=== PATIENT | male | born 1935 | race Asian ===

== ENCOUNTER 2020-10-28 20:22 | Emergency (ER) | payer OTHER, MEDICAID, SELFPAY ==
[~2020-10-28] VITALS: Ht 167.6 cm; Wt 54.4 kg
[2020-10-28 21:15] VITALS: BP_SYST 175
[2020-10-28 23:56] VITALS: BP_SYST 175
--- NOTE | 2020-10-28 23:56 | NUR ---
Patient given written and verbal discharge instructions and verbalizes understanding. ER MD discussed with patient the results and treatment provided. Patient in stable condition. ID arm band removed. Patient educated on pain management and to follow up with PMD. Opportunity for questions provided and answered. Medication side effect fact sheet provided.
== END 2020-10-28 23:56 | disposition home or self-care (01) ==
LOC: SED 20:22
DX: U07.1 COVID-19 (principal)
CPT/HCPCS: 36415; 71045; 99284

== ENCOUNTER 2020-11-11 11:05 | Inpatient (IN) | payer OTHER, MEDICAID, SELFPAY ==
[~2020-11-11] VITALS: Ht 160 cm; Wt 49.9 kg
[2020-11-11 11:05] VITALS: BP_SYST 125
--- NOTE | 2020-11-11 11:11 | NUR ---
Pt triaged in back of ambulance, increased work of breathing, sats in the 70's on CPAP. Brought into ER bed 7. Dr. Mccurdy and RT called to bedside. Pt consents to intubation, FULL CODE.
--- NOTE | 2020-11-11 11:11 | NUR ---
Patient to ER bed 07 to gown for evaluation. Side rails up.
[2020-11-11] MEDS ORDERED: methylPREDNISolone SOD SUCC/PF 62.5 MG/ML VIAL ONE (11:22)
[2020-11-11] MEDS ORDERED: ALBUTEROL SULFATE 0.083% 2.5 MG/3 ML VIAL.NEB INH ONE (11:23)
--- NOTE | 2020-11-11 11:30 | NUR ---
Patient not known to be of DNR status. Patient medicated with 10 mg of etomidate and 10mg of rocuronium for sedation prior to placement of ET tube. Respiratory therapy at bedside prior to placement. Size 7.5 ET tube placed by Dr Mccurdy. Cuff inflated with air. Auscultation of breath sounds over bilateral chest wall. ET tube secured with securement device. O2 sats 95% pulse ox. # 16 FR NG tube placed OG by Dr Mccurdy. Placement checked by auscultation of instilled air into stomach and aspiration of gastric contents. Tubing taped in place to prevent dislodging. Patient tolerated well. PCXR ordered to check tube and OG tube placement. Addendum: 11/11/20 at 1157 by SDEDSTC ETT 22cm @ lip
[2020-11-11] MEDS ORDERED: PROPOFOL DRIP 100 ML IV ONE ×3 (11:35→21:17)
[2020-11-11] MEDS ORDERED: methylPREDNISolone SOD SUCC/PF 62.5 MG/ML VIAL IVP ONE (12:00)
[2020-11-11] MEDS ORDERED: ETOMIDATE 20 MG/ 10 ML VIAL (AMIDATE) IVP ONE (12:00)
[2020-11-11] MEDS ORDERED: ROCURONIUM BROMIDE 10 MG/ML (ZEMURON) IV ONE (12:00)
[2020-11-11] MEDS ORDERED: IPRATROPIUM BROM 0.5 MG/2.5 ML VIAL.NEB (ATROVENT) INH ONE (12:00)
[2020-11-11] MEDS ORDERED: MAGNESIUM SULFATE 1 GM in NS 50 ML IV ONE (12:00)
[2020-11-11] MEDS ORDERED: LevALBUTEROL HCL 1.25 MG/0.5 ML *CONC.* VIAL.NEB (XOPENEX CONC.) INH ONE (12:00)
--- NOTE | 2020-11-11 12:00 | NUR ---
Pt attempting to pull out ETT. Pt is restless and moving in [place].
[2020-11-11] MEDS ORDERED: MONT10TA27 PO (12:06)
[2020-11-11] MEDS ORDERED: NOR10 PO (12:06)
[2020-11-11] MEDS ORDERED: [UNRECOGNIZED DRUG - CODE] PO (12:06)
[2020-11-11] MEDS ORDERED: CELE200C PO (12:06)
[2020-11-11] MEDS ORDERED: ALBMDI INH (12:06)
[2020-11-11] MEDS ORDERED: ESOM20CA33 PO (12:06)
[2020-11-11] MEDS ORDERED: ROSU10TA2 PO (12:06)
[2020-11-11] MEDS ORDERED: TAMS0.4C96 PO (12:06)
[2020-11-11] MEDS ORDERED: FINA5TAB3 PO (12:06)
[2020-11-11] MEDS ORDERED: SPIRIVA INH (12:06)
[2020-11-11] MEDS ORDERED: LORazepam 2 MG/ML VIAL ONE (12:13)
[2020-11-11] MEDS ORDERED: MAGNESIUM SULFATE/D5W 100 ML IV ONE (12:15)
[2020-11-11] MEDS ORDERED: LORazepam 2 MG/ML VIAL IVP ONE (12:15)
[2020-11-11 12:27] LABS: BASOPHILS # (AUTO) 0.1 K/uL (0.0-0.2); BASOPHILS % (AUTO) 0.5 % (0.0-2.0); EOSINOPHILS # (AUTO) 0.1 K/uL (0.0-0.4); EOSINOPHILS % (AUTO) 0.5 % (0.0-4.0); HEMATOCRIT 37.7 % (36-54); HEMOGLOBIN 12.5 g/dL (14.0-18.0); LYMPHOCYTES # (AUTO) 0.6 K/uL (1.0-5.5); LYMPHOCYTES % (AUTO) 3.2 % (20.5-51.5); MEAN CORPUSCULAR HEMOGLOBIN 30 pg (27-31); MEAN CORPUSCULAR HGB CONC 33 % (32-36); MEAN CORPUSCULAR VOLUME 89 fL (79.0-98.0); MONOCYTES # (AUTO) 1.3 K/uL (0.0-1.0); MONOCYTES % (AUTO) 7.8 % (1.7-9.3); NEUTROPHILS # (AUTO) 15.1 K/uL (1.8-7.7); PLATELET COUNT (AUTO) 271 K/uL (130-430); RED BLOOD CELL COUNT(AUTO) 4.24 MIL/uL (4.2-6.2); RED CELL DISTRIBUTION WIDTH 14.4 % (9.0-15.0); WHITE BLOOD COUNT (AUTO) 17.1 K/uL (4.8-10.8)
[2020-11-11 12:44] LABS: ALANINE AMINOTRANSFERASE 54 U/L (12-78); ALBUMIN 2.4 g/dL (3.4-4.8); ANION GAP 11 (5-15); ASPARTATE AMINOTRANSFERASE 61 U/L (10-37); CHLORIDE 99 mmol/L (98-107); CREATININE 1.49 mg/dL (0.55-1.30); POTASSIUM 4.3 mmol/L (3.5-5.1); SODIUM SERUM 133 mmol/L (136-145); UREA NITROGEN, BLOOD 38 mg/dL (8-21)
--- NOTE | 2020-11-11 12:45 | NUR ---
Ativan given as ordered. Diprovan increased to 20mcg/kg/min.
[2020-11-11 12:46] LABS: GLUCOSE 424 mg/dL (70-99); TOTAL BILIRUBIN 19.5 mg/dL (0.0-1.0)
[2020-11-11 12:59] LABS: PROTHROMBIN TIME 10.4 SECS (9.5-12.5)
[2020-11-11] MEDS ORDERED: INSULIN REGULAR, HUMAN 10 UNITS/0.1 ML INJ IVP ONE (13:00)
[2020-11-11] MEDS ORDERED: INSULIN REGULAR, HUMAN 10 UNITS/0.1 ML INJ ONE (13:02)
--- NOTE | 2020-11-11 13:23 | NUR ---
pt in [facility] with side rails up. Pt sedated with medication as ordered. IV Magnesium also infusing as ordered.
--- NOTE | 2020-11-11 13:50 | NUR ---
RT NOTE: 1350 Moved ETT down 3cm per Dr Mccurdy. ETT 25cm at LL. UV Manuel made aware.
[2020-11-11] MEDS ORDERED: AZITHROMYCIN 500 MG in NS 250 ML IV ONE ×2 (14:00→14:30)
[2020-11-11] MEDS ORDERED: NACL 0.9% 1,000 ML IV ONE (14:00)
[2020-11-11] MEDS: DECADRON 4 MG TABLET PO SCH (14:30)
[2020-11-11 14:42] VITALS: BP_SYST 118
[2020-11-11] MEDS ORDERED: ENOXAPARIN SODIUM 60 MG/0.6 ML SYRINGE SUBCUT ONE (14:45)
[2020-11-11] MEDS: D5NS 1,000 ML IV SCH (14:51)
[2020-11-11] MEDS ORDERED: AZITHROMYCIN 500 MG/VIAL (ZITHROMAX) IV ONE (14:59)
--- NOTE | 2020-11-11 15:00 | NUR ---
Provider called regarding pt not being able to take PO medications. Dr. Fowler said he will change the orders.
[2020-11-11 15:20] VITALS: BP_SYST 87
--- NOTE | 2020-11-11 15:20 | NUR ---
CONSULT CALLED PAGED DR SONG VIA PAGER [phone] PAGED DR BARRETO [phone]
--- NOTE | 2020-11-11 16:06 | NUR ---
In bed continues sedation. On Ventilator.
--- NOTE | 2020-11-11 16:40 | NUR ---
Pt running EliseoTensorCommlupillo at 20mcg. Current BP is 93/56 (70).
--- NOTE | 2020-11-11 17:30 | NUR ---
In gurney and sedated. Turned and repositioned. IVF continued.
--- NOTE | 2020-11-11 18:37 | NUR ---
no insulin given for BS of 107. Pt cont. Vent, IVF, Sedation. NGT inplace.
[2020-11-11 19:30] VITALS: BP_SYST 130
--- NOTE | 2020-11-11 19:40 | NUR ---
REPORT RECIEVED FROM COORDINATOR HOTELSVU TANG CONTINUATION OF CARE
--- NOTE | 2020-11-11 20:30 | NUR ---
PT RESTING QUIETLY IN BED VITAL SIGNS STABLE WILL CONTINUE TO MONITOR
[2020-11-11] MEDS: INSULIN GLARGINE 100 UNITS/ML 10 ML VIAL SUBCUT SCH (21:00)
--- NOTE | 2020-11-11 21:03 | NUR ---
PT BLOOD GLUCOSE 109 INSULIN HELD WILL RECHECK AND MONITOR
--- NOTE | 2020-11-11 21:30 | NUR ---
PT REPOSITIONED IN BED TOLERATED WELL VITAL SIGNS STABLE WILL CONTINUE TO MONITOR
--- NOTE | 2020-11-11 23:00 | NUR ---
PT UMNOZ CATH EMPTIED OF 400ML OF TEA COLORED URINE
--- NOTE | 2020-11-11 23:55 | NUR ---
PT BECOMGIN MORE AWAKE FOLLOWING TITRATE PROTOCOL PROPOFOL INCREASED FROM 20 MCG/KG/MIN TO 25 MCG/KG/MIN BP 91/55 HR 72 WILL CONTINUE TO MONITOR
--- NOTE | 2020-11-12 00:05 | NUR ---
MD [place] CALLED FOR ORDERS FOR LEVO DRIP TO CONTROL PT BP WHEN TITRATING PROPOFOL
[2020-11-12] MEDS ORDERED: NOREPINEPHRINE BITARTRATE 4 MG in NS 246 ML IV PRN (00:30)
[2020-11-12] MEDS ORDERED: NOREPINEPHRINE 4 MG/4 ML VIAL IV ONE (00:37)
--- NOTE | 2020-11-12 01:15 | NUR ---
PT PLACED ON LEVO DRIP ORDERED FOR BP BY MD RODRIGUEZ STARTED AT 0.49 MCG/KG/MIN VITAL SIGNS STABLE WILL CONTINUE TO MONITOR
--- NOTE | 2020-11-12 01:26 | NUR ---
PT BP 162/94 LEVOPHED TITRATED TO 0.3 MCG/KG/MIN
--- NOTE | 2020-11-12 02:36 | NUR ---
PT BP 149/108 HR 80 PT ON 25 mcg/KG/MIN OF PROPOFOL AND 0.2 mcg/KG/MIN OF LEVO WILL TITRATE LEVO DOWN TO 0.1 mcg/KG/MIN AND MONITOR PT BP
--- NOTE | 2020-11-12 02:48 | NUR ---
PT DRIP TITRATED TO 0.2 mcg/KG/MIN ON LEVO AND 30 mcg/KG/MIN TO SUSTAIN SEDATION AND BRING BP UP CURRENT BP IS 113/64 HR OF 94
--- NOTE | 2020-11-12 04:45 | NUR ---
LEFT FOREARM 20G IV DISCONTINUED DUE TO INFILTRATION, 20G IV STARTED ON LATERAL FOREARM PATENT AND INFUSING LEVOPHED DRIP AT 0.2mcg/kg/min VITAL SIGNS STABLE WILL CONTINUE TO MONITOR
[2020-11-12] MEDS: INSULIN LISPRO SLIDING SCALE 100 UNITS/ML VIAL (humaLOG) SUBCUT PRN ×2 (06:43→12:26)
[2020-11-12 06:48] LABS: BASOPHILS % (AUTO) 0.2 % (0.0-2.0); HEMATOCRIT 38.3 % (36-54); HEMOGLOBIN 12.8 g/dL (14.0-18.0); LYMPHOCYTES # (AUTO) 0.6 K/uL (1.0-5.5); LYMPHOCYTES % (AUTO) 3.7 % (20.5-51.5); MEAN CORPUSCULAR HEMOGLOBIN 30 pg (27-31); MEAN CORPUSCULAR HGB CONC 34 % (32-36); MEAN CORPUSCULAR VOLUME 89 fL (79.0-98.0); MONOCYTES # (AUTO) 0.5 K/uL (0.0-1.0); MONOCYTES % (AUTO) 3.4 % (1.7-9.3); NEUTROPHILS # (AUTO) 14.3 K/uL (1.8-7.7); NEUTROPHILS % (AUTO) 92.7 % (40.0-70.0); PLATELET COUNT (AUTO) 264 K/uL (130-430); RED BLOOD CELL COUNT(AUTO) 4.28 MIL/uL (4.2-6.2); RED CELL DISTRIBUTION WIDTH 14.2 % (9.0-15.0); WHITE BLOOD COUNT (AUTO) 15.4 K/uL (4.8-10.8)
--- NOTE | 2020-11-12 06:52 | NUR ---
MUNOZ CATH EMPTIED OF 900ML CLEAR YELLOW URINE
--- NOTE | 2020-11-12 06:59 | NUR ---
PT TOLERATING DRIPS WELL VITAL SIGNS STABLE PROPOFOL DRIP 25 mcg/kg/min LEVOPHED 0.2 mcg/kg/min BP 129/66 HR 96 Addendum: 11/12/20 at 0702 by [email or web address] PT TOLERATING DRIPS WELL VITAL SIGNS STABLE PROPOFOL DRIP 30 mcg/kg/min LEVOPHED 0.2 mcg/kg/min BP 129/66 HR 96
--- NOTE | 2020-11-12 07:20 | NUR ---
REPORT FROM MOHINDER WOMACK
--- NOTE | 2020-11-12 07:22 | NUR ---
BEDSIDE REPORT GIVEN TO PHARMACY TECHNOLOGIST SUN WHO WILL ASSUME CARE
[2020-11-12 07:38] VITALS: BP_SYST 116
--- NOTE | 2020-11-12 07:40 | NUR ---
RT NOTE: 0740 Decreased FiO2 to 60%. VU Dutton made aware. 0920 Decreased FiO2 to 50% by Dr Ortiz. Dr Ortiz verbally ordered to keep titrating pt. VU Dutton relayed info to me. Will carry out orders. Addendum: 11/12/20 at 0932 by Eveline Perez RT Amended: Links added.
--- NOTE | 2020-11-12 07:50 | NUR ---
Alayna RT at
--- NOTE | 2020-11-12 07:52 | NUR ---
Patient actively moving hands near face attempting to grab tubes. Increased propofol IV infusion to 35 mcg/kg/hr per protocol.
--- NOTE | 2020-11-12 07:57 | NUR ---
Patient actively moving hands near face attempting to grab tubes. Increased propofol IV infusion to 40 mcg/kg/hr per protocol.
--- NOTE | 2020-11-12 08:04 | NUR ---
Patient actively moving hands near face. Increased propofol IV infusion to 40 mcg/kg/hr per protocol.
--- NOTE | 2020-11-12 08:10 | NUR ---
Patient actively moving hands near face. Increased propofol IV infusion to 45 mcg/kg/hr per protocol.
[2020-11-12 08:12] LABS: ANION GAP 13 (5-15); CALCIUM 8.6 mg/dL (8.4-11.0); CHLORIDE 103 mmol/L (98-107); GLUCOSE 223 mg/dL (70-99); POTASSIUM 4.1 mmol/L (3.5-5.1); SODIUM SERUM 136 mmol/L (136-145); UREA NITROGEN, BLOOD 39 mg/dL (8-21)
[2020-11-12 08:55] LABS: CREATININE 1.23 mg/dL (0.55-1.30)
--- NOTE | 2020-11-12 09:05 | NUR ---
at bedside examining patient.
[2020-11-12] MEDS ORDERED: PROPOFOL DRIP 100 ML IV PRN (09:45)
[2020-11-12 10:07] LABS: ERYTHROCYTE SEDIMENTATION RATE 73 MM/HR (0-15)
[2020-11-12 10:42] LABS: C-REACTIVE PROTEIN QUANT 14.6 mg/dL (0-0.5)
[2020-11-12] MEDS: ASCORBIC ACID 500 MG TABLET PO SCH (10:58)
[2020-11-12] MEDS: AZITHROMYCIN 250 MG TABLET PO SCH (10:59)
[2020-11-12] MEDS: CHOLECALCIFEROL (VITAMIN D3) 2,000 UNIT TABLET PO SCH (10:59)
[2020-11-12] MEDS: D5NS 1,000 ML IV SCH (11:00)
[2020-11-12] MEDS: ENOXAPARIN SODIUM 60 MG/0.6 ML SYRINGE SUBCUT SCH (11:01)
--- NOTE | 2020-11-12 11:15 | NUR ---
PT REPOSITIONED FOR COMFORT
[2020-11-12 11:30] VITALS: BP_SYST 122
[2020-11-12] MEDS ORDERED: INSULIN Lispro 100 UNITS/ML VIAL (humaLOG) ONE (12:25)
[2020-11-12] MEDS ORDERED: ETOMIDATE 20 MG/ 10 ML VIAL (AMIDATE) IVP ONE (12:27)
[2020-11-12] MEDS ORDERED: ROCURONIUM BROMIDE 10 MG/ML (ZEMURON) IV ONE (12:27)
--- NOTE | 2020-11-12 13:30 | NUR ---
Report to Brigette WOMACK
--- NOTE | 2020-11-12 13:53 | NUR ---
PT REPOSITIONED FOR COMFORT
--- NOTE | 2020-11-12 13:58 | NUR ---
LAB AT THE BEDSIDE FOR BLOOD DRAW
--- NOTE | 2020-11-12 14:19 | NUR ---
PT GIVEN BOLUS TUBE FEEDING 150ML AND 50ML WATER FLUSH. NO RESISTANCE, TOLERATED WELL
[2020-11-12] MEDS: DECADRON 4 MG TABLET PO SCH (14:27)
[2020-11-12 15:38] VITALS: BP_SYST 118
--- NOTE | 2020-11-12 15:41 | NUR ---
SW FAMILY ON THE PHONE, VERBAL CONSENT RECEIVED FOR CONVALESCENT PLASMA BY DAUGHTER YENNI AND SON KYLIE . ORDER GIVEN TO BLOOD BANK TO FILL.
--- NOTE | 2020-11-12 15:58 | NUR ---
PT REPOSITIONED FOR COMFORT
--- NOTE | 2020-11-12 16:25 | NUR ---
Case mgt: Rec'd call from Hilary Black, pt's daughter, who said she is the first contact at [phone] and her Kody Cho is the 2nd contact at [phone]..Per Hilary, the pt's is very ill with Covid right now also. RN
--- NOTE | 2020-11-12 16:45 | NUR ---
TUBE FEEDING 200ML GIVEN, PT TOLERATED WELL
--- NOTE | 2020-11-12 17:45 | NUR ---
NG TUBE FLUSHED WITH 50ML WATER, NO RESIDUAL NOTED
--- NOTE | 2020-11-12 18:00 | NUR ---
1400ML OF DARK YELLOW CLEAR URINE EMPTIED FROM MUNOZ CATH COLLECTION BAG
--- NOTE | 2020-11-12 18:30 | NUR ---
PT STARTED ON COVID-19 CONVALESCENT PLASMA, TOLERATING WELL 128/69 P 88 R22 T97.9
--- NOTE | 2020-11-12 18:45 | NUR ---
TOLERATING CONVALESCENT PLAMSA WELL. V/S STABLE
--- NOTE | 2020-11-12 19:25 | NUR ---
REPORT GIVEN TO VU GALVEZ FOR CONTINUING CARE
[2020-11-12 19:30] VITALS: BP_SYST 125
--- NOTE | 2020-11-12 19:40 | NUR ---
PT RESTING IN ED BED COMFORTABLY, TOLERATING VENTILATOR AND IV MEDICATIONS WELL. PT IN NO ACUTE DISTRESS AT THIS TIME. IV SITES INFUSING WELL, NO S/S OF INFILTRATION AT THIS TIME.
[2020-11-12] MEDS: INSULIN GLARGINE 100 UNITS/ML 10 ML VIAL SUBCUT SCH (21:00)
--- NOTE | 2020-11-12 22:00 | NUR ---
NO ACUTE CHANGES NOTED. PT RESTING IN ED BED COMFORTABLY, TOLERATING VENTILATOR AND IV MEDICATIONS WELL. PT IN NO ACUTE DISTRESS AT THIS TIME. IV SITES INFUSING WELL, NO S/S OF INFILTRATION AT THIS TIME.
--- NOTE | 2020-11-13 01:15 | NUR ---
PT REPOSITIONED FOR SAFETY. RT BEDSIDE PERFORMING ROUTINE CHECKUP, SUCTIONING, VENTILATOR CHECK AND RESPIRATORY STATUS ASSESMENT. NO ACUTE CHANGES NOTED. PT RESTING IN ED BED COMFORTABLY, TOLERATING VENTILATOR AND IV MEDICATIONS WELL. PT IN NO ACUTE DISTRESS AT THIS TIME. IV SITES INFUSING WELL, NO S/S OF INFILTRATION AT THIS TIME.
[2020-11-13 01:30] VITALS: BP_SYST 125
[2020-11-13] MEDS: CEFEPIME 0.5 GM in D5W 50 ML IV SCH ×3 (02:17→21:00)
--- NOTE | 2020-11-13 02:20 | NUR ---
PT GTUBE FLUSHED WITH 50CC WATER
--- NOTE | 2020-11-13 04:00 | NUR ---
RT BEDSIDE PERFORMING ROUTINE CHECKUP, SUCTIONING, VENTILATOR CHECK AND RESPIRATORY STATUS ASSESMENT. NO ACUTE CHANGES NOTED. PT RESTING IN ED BED COMFORTABLY, TOLERATING VENTILATOR AND IV MEDICATIONS WELL. PT IN NO ACUTE DISTRESS AT THIS TIME. IV SITES INFUSING WELL, NO S/S OF INFILTRATION AT THIS TIME.
[2020-11-13 04:51] LABS: ANION GAP 9 (5-15); CALCIUM 7.5 mg/dL (8.4-11.0); CHLORIDE 108 mmol/L (98-107); GLUCOSE 156 mg/dL (70-99); POTASSIUM 4.1 mmol/L (3.5-5.1); SODIUM SERUM 141 mmol/L (136-145); UREA NITROGEN, BLOOD 38 mg/dL (8-21)
[2020-11-13 05:13] LABS: C-REACTIVE PROTEIN QUANT 6.9 mg/dL (0-0.5)
[2020-11-13 06:22] LABS: HEMATOCRIT 34.3 % (36-54); HEMOGLOBIN 11.5 g/dL (14.0-18.0); MEAN CORPUSCULAR HEMOGLOBIN 30 pg (27-31); MEAN CORPUSCULAR HGB CONC 34 % (32-36); MEAN CORPUSCULAR VOLUME 91 fL (79.0-98.0); PLATELET COUNT (AUTO) 275 K/uL (130-430); RED BLOOD CELL COUNT(AUTO) 3.78 MIL/uL (4.2-6.2); WHITE BLOOD COUNT (AUTO) 16.2 K/uL (4.8-10.8)
--- NOTE | 2020-11-13 07:21 | NUR ---
report given given to brenda lopez. all care endorsed.
[2020-11-13 07:23] LABS: BASOPHILS % (AUTO) 0.2 % (0.0-2.0); NEUTROPHILS % (AUTO) 92.8 % (40.0-70.0)
[2020-11-13 07:24] LABS: LYMPHOCYTES # (AUTO) 0.3 K/uL (1.0-5.5); MONOCYTES # (AUTO) 0.8 K/uL (0.0-1.0); NEUTROPHILS # (AUTO) 15.2 K/uL (1.8-7.7)
--- NOTE | 2020-11-13 07:33 | NUR ---
Pt in bed, side rails up. Continues Sedation as ordered and Blood pressure support with Levophed. Also on Ventilator, tolerating well.
[2020-11-13] MEDS: D5NS 1,000 ML IV SCH (07:36)
[2020-11-13 07:50] VITALS: BP_SYST 138
--- NOTE | 2020-11-13 07:50 | NUR ---
RT NOTE: 0750 Decreased PEEP to 8. SpO2 is between 93-95%. Will continue to titrate pt. VU Manuel made aware of changes. Addendum: 11/13/20 at 0829 by Eveline Perez RT Amended: Links added.
[2020-11-13] MEDS: ASCORBIC ACID 500 MG TABLET PO SCH (10:29)
[2020-11-13] MEDS: CHOLECALCIFEROL (VITAMIN D3) 2,000 UNIT TABLET PO SCH (10:29)
[2020-11-13] MEDS: AZITHROMYCIN 250 MG TABLET PO SCH (10:29)
[2020-11-13] MEDS: ENOXAPARIN SODIUM 60 MG/0.6 ML SYRINGE SUBCUT SCH (10:30)
--- NOTE | 2020-11-13 10:31 | NUR ---
SS notes HONING MACHINE OPERATOR PRODUCTION was called to the lobby to meet with son-in-law who stated patients is recovering from Covid at home and is in no condition to make any decisions in regards to patient's health. Son-in-law,Kody Cho is the 2nd contact at [phone] Hilary Black, pt's daughter, who said she is the first contact at [phone]. Son-in-law gave HONING MACHINE OPERATOR PRODUCTION an informal POA which indicated as such and was given to ER/chemistry specialist. HONING MACHINE OPERATOR PRODUCTION expalined to son-in-law this was considered informal and gave him a formal POA, but assured him she would make Rn aware and give to Rn to place in the file. HONING MACHINE OPERATOR PRODUCTION will remain available as needed.
--- NOTE | 2020-11-13 10:49 | NUR ---
pt in bed. sedated as ordered. Levophed on hold at this time.
--- NOTE | 2020-11-13 11:08 | NUR ---
Pt is responding to tactile stimuli. On diprovan. Pt is on Levophed, which is holding at this time with B/P 117/68 (80)
[2020-11-13 11:45] LABS: ALANINE AMINOTRANSFERASE 56 U/L (12-78); ALBUMIN 2.1 g/dL (3.4-4.8); ANION GAP 10 (5-15); ASPARTATE AMINOTRANSFERASE 33 U/L (10-37); BILIRUBIN,DIRECT 0.3 mg/dL (0.0-0.3); CHLORIDE 109 mmol/L (98-107); CREATININE 1.18 mg/dL (0.55-1.30); GLUCOSE 132 mg/dL (70-99); POTASSIUM 4.2 mmol/L (3.5-5.1); SODIUM SERUM 142 mmol/L (136-145); TOTAL BILIRUBIN 0.5 mg/dL (0.0-1.0); UREA NITROGEN, BLOOD 40 mg/dL (8-21)
[2020-11-13 12:06] LABS: ERYTHROCYTE SEDIMENTATION RATE 38 MM/HR (0-15)
[2020-11-13 12:15] VITALS: BP_SYST 120
--- NOTE | 2020-11-13 12:20 | NUR ---
Peep decreased to 5, saturations on 40% on vent are 96% at this time. Levophed held.
--- NOTE | 2020-11-13 13:36 | NUR ---
diprovan continued at 25mcg/kg/min. Levophed on hold. Vent AC TV 400 peep 5 and fio2 40%
[2020-11-13] MEDS: DECADRON 4 MG TABLET PO SCH (14:31)
--- NOTE | 2020-11-13 14:40 | NUR ---
Dietitian Recommendations *Continue Glucerna 1.2 at 10ml, goal of 50ml/hr, with 100ml Free H20 Q6h *At goal and w/Propofol at 25mcg/kg/min (which provides 198 calories) -Provides: 1638 calories, 72g of protein, and 1366ml of free H20 daily -Meets 133% of upper end of calorie and 96% of lower end of protein estimated nutrition needs. Please see Nutrition Assessment for further details. LT, RD
[2020-11-13] MEDS ORDERED: PROPOFOL DRIP 100 ML IV ONE ×2 (14:55→21:08)
[2020-11-13 15:20] VITALS: BP_SYST 108
--- NOTE | 2020-11-13 16:09 | NUR ---
Pt in bed. Side rails up. Ventilator in use. Continues IVF and Diprovan drip at 20mcg/kg/min. tolerating well.
--- NOTE | 2020-11-13 17:25 | NUR ---
Pt is sedated. Levophed off. Ventilator in use.
--- NOTE | 2020-11-13 18:57 | NUR ---
pt responds to tactile stimuli. NGT in place to low intermittent suction. Ventilator in use. fio2 down to 40% and peep at 5. Vital signs have been stablized. Levophed not in use at this time. Pt continues sedation with diprovan.
[2020-11-13 19:33] VITALS: BP_SYST 117
--- NOTE | 2020-11-13 19:33 | NUR ---
rt notes 1932 titrated fio2 to 35%, pt saturation 95%. no distress noted. will continue to monitor pt.
--- NOTE | 2020-11-13 21:30 | NUR ---
Report recevied from Kaleb WOMACK for continuation of care.
--- NOTE | 2020-11-13 21:45 | NUR ---
Pt currently on ventilation and sedated. Propofol runnning art 35 mcg/hr. Upon assessment carmina brown discharge from OGT. Admitting MD to be paged.
--- NOTE | 2020-11-13 21:50 | NUR ---
Pt.'s daughter, Mandi calls to [employer]. Informed her that iPad is not available at this time and suggested that she call back tomorrow. Contact Information: Mehran: [email or web address]
--- NOTE | 2020-11-13 22:10 | NUR ---
HOLD ANTICOGUALANTS AND TUBE FEEDING PER DR GAYTAN
--- NOTE | 2020-11-13 22:10 | NUR ---
Dr Cotto responding to page for patient. Made aware of 300 cc of coffee brown emesis in suction cup.
--- NOTE | 2020-11-13 22:30 | NUR ---
Upon assessment of mota cath, pt has voided about 800 cc of Addendum: 11/13/20 at 2236 by [email or web address] Upon assessment of mota cath, pt has voided about 800 cc of urine bright red urine in color. Dr Daxa garcia, repeat hemoglobin and hematocrit to be drawn. will called with results if critical.
--- NOTE | 2020-11-13 22:40 | NUR ---
RT caalled to bedside, pt fighting intubation. Propofol increased to 40 mcg.
[2020-11-13 23:21] VITALS: BP_SYST 115
--- NOTE | 2020-11-13 23:21 | NUR ---
rt notes 2321 titrated fio2 to 30%, pt saturation 93%. no distress noted. will continue to monitor pt.
--- NOTE | 2020-11-13 23:40 | NUR ---
electrical tech at bedside for lab drawn
[2020-11-13] MEDS: INSULIN GLARGINE 100 UNITS/ML 10 ML VIAL SUBCUT SCH (23:42)
[2020-11-13 23:51] LABS: HEMATOCRIT 35.3 % (36-54); HEMOGLOBIN 11.8 g/dL (14.0-18.0)
--- NOTE | 2020-11-14 | NUR ---
Pt fighting intubation, dipravan increased to 40 mcg.
--- NOTE | 2020-11-14 02:00 | NUR ---
Norman cath emptied 1500cc of urine.
[2020-11-14] MEDS ORDERED: PROPOFOL DRIP 100 ML IV ONE ×4 (02:16→23:25)
[2020-11-14 03:49] VITALS: BP_SYST 114
--- NOTE | 2020-11-14 03:49 | NUR ---
RT at bedside. Vent settings remain unchanged.
[2020-11-14] MEDS: D5NS 1,000 ML IV SCH (03:54)
--- NOTE | 2020-11-14 05:10 | NUR ---
RT called to bedside, pt O2 at 85 percent. Rt suctioned patient, tolerated well. O2 increased, currently at 92%.
--- NOTE | 2020-11-14 05:20 | NUR ---
Diprvan titrating at 35mcg
[2020-11-14 06:20] LABS: BASOPHILS % (AUTO) 0.4 % (0.0-2.0); HEMATOCRIT 37.5 % (36-54); HEMOGLOBIN 12.6 g/dL (14.0-18.0); LYMPHOCYTES # (AUTO) 0.6 K/uL (1.0-5.5); LYMPHOCYTES % (AUTO) 4.9 % (20.5-51.5); MEAN CORPUSCULAR HEMOGLOBIN 30 pg (27-31); MEAN CORPUSCULAR HGB CONC 34 % (32-36); MEAN CORPUSCULAR VOLUME 89 fL (79.0-98.0); MONOCYTES # (AUTO) 1.1 K/uL (0.0-1.0); MONOCYTES % (AUTO) 9.1 % (1.7-9.3); NEUTROPHILS # (AUTO) 10.1 K/uL (1.8-7.7); NEUTROPHILS % (AUTO) 85.6 % (40.0-70.0); PLATELET COUNT (AUTO) 247 K/uL (130-430); RED BLOOD CELL COUNT(AUTO) 4.24 MIL/uL (4.2-6.2); RED CELL DISTRIBUTION WIDTH 14.3 % (9.0-15.0); WHITE BLOOD COUNT (AUTO) 11.8 K/uL (4.8-10.8)
--- NOTE | 2020-11-14 06:41 | NUR ---
BG 103. No insulin will be given as per protocol.
--- NOTE | 2020-11-14 07:10 | NUR ---
Report given to Brigette WOMACK for continuation of care
--- NOTE | 2020-11-14 07:13 | NUR ---
REPORT RECEIVED FROM VU LEO FOR CONTINUING CARE
[2020-11-14 07:20] VITALS: BP_SYST 126
--- NOTE | 2020-11-14 07:30 | NUR ---
PT CONTINUES ON DRIPS DIPRIVAN @ 40MCG/KG/MIN AND D5NS@ 50ML/HR. PT IS SEDATED AND NO S/SX OF DISTRESS AT THIS TIME
[2020-11-14 07:47] LABS: ANION GAP 7 (5-15); CHLORIDE 109 mmol/L (98-107); CREATININE 1.15 mg/dL (0.55-1.30); GLUCOSE 139 mg/dL (70-99); POTASSIUM 4.1 mmol/L (3.5-5.1); SODIUM SERUM 144 mmol/L (136-145); UREA NITROGEN, BLOOD 47 mg/dL (8-21)
--- NOTE | 2020-11-14 08:38 | NUR ---
LAB AT THE BEDSIDE FOR BLOOD DRAW
[2020-11-14] MEDS: ENOXAPARIN SODIUM 60 MG/0.6 ML SYRINGE SUBCUT SCH (08:50)
[2020-11-14] MEDS ORDERED: PANTOPRAZOLE SODIUM 40 MG/VIAL (PROTONIX) IV ONE (09:30)
[2020-11-14 09:33] LABS: ERYTHROCYTE SEDIMENTATION RATE 65 MM/HR (0-15)
[2020-11-14] MEDS: CEFEPIME 0.5 GM in D5W 50 ML IV SCH ×2 (09:34→21:54)
[2020-11-14 10:20] LABS: C-REACTIVE PROTEIN QUANT 4.2 mg/dL (0-0.5)
[2020-11-14] MEDS: AZITHROMYCIN 250 MG TABLET PO SCH (10:50)
[2020-11-14] MEDS: CHOLECALCIFEROL (VITAMIN D3) 2,000 UNIT TABLET PO SCH (10:50)
[2020-11-14] MEDS: ASCORBIC ACID 500 MG TABLET PO SCH (10:50)
--- NOTE | 2020-11-14 11:07 | NUR ---
PORTABLE X-RAY AT THE BEDSIDE
[2020-11-14 11:20] VITALS: BP_SYST 115
--- NOTE | 2020-11-14 12:35 | NUR ---
PT OBSERVED TO BE FIGTING THE VENT AND SITTING UP AND 02 SAT DROPPED TO 80%. DIPRIVAN INCREASED TO 45MCG/KG/MIN. RT CALLED TO THE BEDSIDE FOR SUCTION, 02 INCREASED TO 100%. PT'S O2 SAT UP TO 100%
--- NOTE | 2020-11-14 12:50 | NUR ---
RT AT THE BEDSIDE, PT IS SEDATED IN NO ACUTE DISTRESS. VENT TITRATED DOWN TO 30%. PT TOLERATED WELL 02 SAT 94%
[2020-11-14] MEDS: METOCLOPRAMIDE HCL 10 MG/2 ML VIAL IVP SCH ×2 (12:51→18:01)
--- NOTE | 2020-11-14 13:40 | NUR ---
PT REPOSITIONED FOR COMFORT
[2020-11-14] MEDS: DECADRON 4 MG TABLET PO SCH (14:52)
[2020-11-14 15:25] VITALS: BP_SYST 125
--- NOTE | 2020-11-14 15:40 | NUR ---
700ML COFFEE GROUND EMESIS REMOVED FROM SUCTION CONTAINER
--- NOTE | 2020-11-14 16:39 | NUR ---
SW TO DAUGHTER WITH STATUS UPDATE
--- NOTE | 2020-11-14 18:08 | NUR ---
800ML OF GREENISH COLORED URINE WITH TINGES OF DARK RED BLOOD REMOVED FROM MUNOZ
--- NOTE | 2020-11-14 19:36 | NUR ---
REPORT GIVEN TO VU LEO FOR CONTINUING CARE
--- NOTE | 2020-11-14 19:40 | NUR ---
Report received from Brigette WOMACK for continuation of care
--- NOTE | 2020-11-14 20:10 | NUR ---
Pt is on diprivan running at 40MCG and D5NS@ 50ML/hr. Pt is sedated no s/s of respiratory distress.
[2020-11-14 20:23] VITALS: BP_SYST 124
--- NOTE | 2020-11-14 20:28 | NUR ---
RT at bedside. Pt suctioned. Tolerated well.
[2020-11-14] MEDS: INSULIN GLARGINE 100 UNITS/ML 10 ML VIAL SUBCUT SCH (22:05)
--- NOTE | 2020-11-14 23:00 | NUR ---
Dipravan drip infusing at 35 mcg. Pt sedated.
[2020-11-14 23:53] VITALS: BP_SYST 117
--- NOTE | 2020-11-14 23:53 | NUR ---
rt notes 2353 increased fio2 to 60%, pt desaturating. sxn'd oral/ett. will continue to monitor pt.will titrate fio2 as tolerated. VU tejada.
[2020-11-15] MEDS: D5NS 1,000 ML IV SCH (00:52)
[2020-11-15] MEDS: METOCLOPRAMIDE HCL 10 MG/2 ML VIAL IVP SCH ×4 (00:52→19:06)
--- NOTE | 2020-11-15 01:17 | NUR ---
Pt restless, Diprovan drip infusing at 40 mcg. Pt suctioned, RT at bedside.
--- NOTE | 2020-11-15 02:00 | NUR ---
Pt fighting ventilation, seems agitated and easily aroused. Diprivan increased to 40 mcg.
--- NOTE | 2020-11-15 02:10 | NUR ---
RT at bedside, pt suctioned, tolerated well. No acute changes.
[2020-11-15 03:47] VITALS: BP_SYST 116
--- NOTE | 2020-11-15 03:47 | NUR ---
Pt FIO2 decreased to 35% by RT Amy.
--- NOTE | 2020-11-15 03:47 | NUR ---
RT NOTES 0347 titrated fio2 to 35%, pt saturation 99%. no distress noted. will continue to monitor pt.
[2020-11-15] MEDS ORDERED: PROPOFOL DRIP 100 ML IV ONE (05:04)
--- NOTE | 2020-11-15 05:30 | NUR ---
Dipravan infusing at 35 mcg. IV sites show no signs of infiltration.
--- NOTE | 2020-11-15 06:34 | NUR ---
Pt voided 740 cc of yellow green tinge urine.
--- NOTE | 2020-11-15 07:09 | NUR ---
BG 85. No insulin coverage needed.
--- NOTE | 2020-11-15 07:23 | NUR ---
report give to diana WOMACK for continuation of care
[2020-11-15 07:30] VITALS: BP_SYST 115
[2020-11-15 07:54] LABS: BASOPHILS % (AUTO) 0.4 % (0.0-2.0); EOSINOPHILS # (AUTO) 0.1 K/uL (0.0-0.4); EOSINOPHILS % (AUTO) 0.6 % (0.0-4.0); HEMATOCRIT 34.5 % (36-54); HEMOGLOBIN 11.5 g/dL (14.0-18.0); LYMPHOCYTES # (AUTO) 0.8 K/uL (1.0-5.5); LYMPHOCYTES % (AUTO) 8.7 % (20.5-51.5); MEAN CORPUSCULAR HEMOGLOBIN 30 pg (27-31); MEAN CORPUSCULAR HGB CONC 34 % (32-36); MEAN CORPUSCULAR VOLUME 89 fL (79.0-98.0); MONOCYTES % (AUTO) 11.6 % (1.7-9.3); NEUTROPHILS # (AUTO) 6.9 K/uL (1.8-7.7); NEUTROPHILS % (AUTO) 78.7 % (40.0-70.0); PLATELET COUNT (AUTO) 180 K/uL (130-430); RED BLOOD CELL COUNT(AUTO) 3.87 MIL/uL (4.2-6.2); RED CELL DISTRIBUTION WIDTH 14.4 % (9.0-15.0); WHITE BLOOD COUNT (AUTO) 8.7 K/uL (4.8-10.8)
--- NOTE | 2020-11-15 08:00 | NUR ---
Patient in [facility], sedated on ventilator.
--- NOTE | 2020-11-15 08:15 | NUR ---
PT repositioned, partial linen change, ET tube suctioned.
[2020-11-15 08:44] LABS: ALANINE AMINOTRANSFERASE 97 U/L (12-78); ALBUMIN 1.6 g/dL (3.4-4.8); ANION GAP 4 (5-15); CHLORIDE 113 mmol/L (98-107); CREATININE 0.96 mg/dL (0.55-1.30); GLUCOSE 81 mg/dL (70-99); POTASSIUM 3.6 mmol/L (3.5-5.1); SODIUM SERUM 143 mmol/L (136-145); TOTAL BILIRUBIN 0.8 mg/dL (0.0-1.0); UREA NITROGEN, BLOOD 32 mg/dL (8-21)
[2020-11-15 08:52] LABS: ERYTHROCYTE SEDIMENTATION RATE 64 MM/HR (0-15)
[2020-11-15] MEDS: CHOLECALCIFEROL (VITAMIN D3) 2,000 UNIT TABLET PO SCH (08:55)
[2020-11-15] MEDS: AZITHROMYCIN 250 MG TABLET PO SCH (08:56)
[2020-11-15] MEDS: ENOXAPARIN SODIUM 60 MG/0.6 ML SYRINGE SUBCUT SCH ×2 (08:57→09:00)
[2020-11-15] MEDS: PANTOPRAZOLE SODIUM 40 MG/VIAL (PROTONIX) IV SCH (09:02)
[2020-11-15] MEDS: ASCORBIC ACID 500 MG TABLET PO SCH (09:09)
[2020-11-15 09:54] LABS: ASPARTATE AMINOTRANSFERASE 98 U/L (10-37)
[2020-11-15] MEDS: CEFEPIME 0.5 GM in D5W 50 ML IV SCH (09:56)
[2020-11-15] MEDS ORDERED: METOCLOPRAMIDE HCL 10 MG/2 ML VIAL ONE (11:32)
[2020-11-15] MEDS: DEXMEDETOMIDINE HCL 400 MCG in NS 96 ML IV PRN ×2 (11:37→12:23)
--- NOTE | 2020-11-15 12:30 | NUR ---
Report to Prachi WOMACK
--- NOTE | 2020-11-15 12:39 | NUR ---
Propofol decreased to 15mcg/kg/ minute, pt on Precedex 0.3 mcg/kg/hour, VSS.
--- NOTE | 2020-11-15 12:39 | NUR ---
Paz arevalo in EDM - 11/15/20 at 1322 by [email or web address] Propofol decreased to 15mcg/kg/ minute, pt on Precedex 0.2mcg/kg/hour, VSS.
--- NOTE | 2020-11-15 13:23 | NUR ---
Precedex increased to 0.4 MCG/KG/ HR, well tolerated
--- NOTE | 2020-11-15 13:35 | NUR ---
Report to Berenice WOMACK(rehab tech)
--- NOTE | 2020-11-15 14:00 | NUR ---
IV PROPOFOL DISCONTINUED. IV PRECEDEX INCREASED TO0.5mcg/kg/H. PT TOLERATING, NO S/S DISTRESS. SAFETY PRECAUTIONS IN PLACE. WILL CONTINUE TO MONITOR. PENDING ICU BED.
[2020-11-15 14:18] VITALS: BP_SYST 105
--- NOTE | 2020-11-15 14:18 | NUR ---
RT NOTE: 1418 Pt is arousable and appears to understand. Explained CPAP to pt. Placed on CPAP 5, PS 10 at this time. Tolerating well. RN made aware. Will draw ABG in 30mins. Addendum: 11/15/20 at 1449 by Eveline Perez RT Amended: Links added.
[2020-11-15 14:55] LABS: CALCIUM 7.8 mg/dL (8.4-11.0)
--- NOTE | 2020-11-15 15:00 | NUR ---
IV PRECEDEX INFUSING AT 0.5mcg/kg/H. PT TOLERATING, NO S/S DISTRESS. SAFETY PRECAUTIONS IN PLACE. WILL CONTINUE TO MONITOR. PENDING ICU BED.
--- NOTE | 2020-11-15 15:21 | NUR ---
SPOKE TO DR. VILLALBA REGARDING PATIENT'S DECADRON PO ORDER. OK TO CHANGE TO IVP. ORDER STOPPED IN CPOE AND NEW ORDER PLACED FOR IVP.
[2020-11-15] MEDS: DEXAMETHASONE SOD PHOSPHATE 10 MG/ML VIAL IVP SCH (15:30)
--- NOTE | 2020-11-15 16:00 | NUR ---
IV PRECEDEX INCREASED TO 0.6mcg/kg/H. PT TOLERATING, NO S/S DISTRESS. SAFETY PRECAUTIONS IN PLACE. WILL CONTINUE TO MONITOR. PENDING ICU BED.
--- NOTE | 2020-11-15 17:00 | NUR ---
IV PRECEDEX INCREASED TO 0.7mcg/kg/H. PT TOLERATING, NO S/S DISTRESS. SAFETY PRECAUTIONS IN PLACE. WILL CONTINUE TO MONITOR. PENDING ICU BED.
--- NOTE | 2020-11-15 17:30 | NUR ---
ACCUCHECK 148. NO INSULIN COVERAGE NEEDED AT THIS TIME.
--- NOTE | 2020-11-15 19:00 | NUR ---
RECEIVED REPORT FROM VU GLOVER . WILL CONTINUE CARE OF PATIENT.
--- NOTE | 2020-11-15 19:32 | NUR ---
Will assume care of patient. Patient presented to the ED on November 11 for altered level of consciousness, respiratory distress, from home. Has history of BPH, hypertension, hyperlipidemia, COPD, asthma. Patient is currently intubated on AC 16 tidal volume of 470 PEEP of 5 on 30% FiO2. Patient has 18-gauge Angiocath to right AC. Currently running Precedex 1.5 mcg/kg/h. And D5 NS at 50 mL's per hour. Patient's RASS score is -2. Vital signs in normal limits. Patient is able to respond to voice. Patient also has an OG tube connected to intermittent suctioning.
--- NOTE | 2020-11-15 20:00 | NUR ---
Oral care performed on patient. Patient tolerated well.
--- NOTE | 2020-11-15 20:30 | NUR ---
Patient resting comfortably in hospital bed. No acute distress noted. will continue to monitor.
[2020-11-15] MEDS: INSULIN GLARGINE 100 UNITS/ML 10 ML VIAL SUBCUT SCH (21:00)
--- NOTE | 2020-11-15 21:09 | NUR ---
Accu-CheCk is 95. Lantus 10 units held at this time. No tube feeding was given to patient during day shift. ADMinister tube feeding
--- NOTE | 2020-11-15 21:30 | NUR ---
18-gauge and 20gauge angiocath removed from right AC. Redness and swelling noted. Pressure dressing applied. 20-gauge Angiocath placed to right forearm.
[2020-11-15 21:54] VITALS: BP_SYST 141
--- NOTE | 2020-11-15 22:00 | NUR ---
Patient restless in bed. Able to nod head when asked questions. Patient is requesting to be sedated. Patient is fighting the ET tube. Dr. Roman called for orders.
--- NOTE | 2020-11-15 22:13 | NUR ---
SPOKE TO DR. ROJO. OK TO START PROPOFOL ON PATIENT. WILL INFORM MD WOULD LIKE PATIENT TO BE WEANED OFF AND PLACED BACK ON PRECEDEX IN THE AM.
[2020-11-15] MEDS ORDERED: PROPOFOL DRIP 100 ML IV PRN (22:30)
--- NOTE | 2020-11-15 22:30 | NUR ---
PATIENT STARTED ON PROPOFOL 5 MCG/KG/MIN AND TITRATED PRECEDEX 1.4 MC/KG/MIN. WILL CONTINUE TO MONITOR PATIENT
--- NOTE | 2020-11-15 22:35 | NUR ---
Paz arevalo in ED - 11/15/20 at 2239 by [email or web address] PATIENT STARTED ON PROPOFOL 10 MCG/KG/MIN AND TITRATED PRECEDEX 1 MC/KG/MIN. WILL CONTINUE TO MONITOR PATIENT
--- NOTE | 2020-11-15 22:35 | NUR ---
Paz arevalo in ED - 11/15/20 at 2248 by [email or web address] TRITATED PROPOFOL 10 MCG/KG/MIN AND TITRATED PRECEDEX 1 MC/KG/MIN. WILL CONTINUE TO MONITOR PATIENT
--- NOTE | 2020-11-15 22:35 | NUR ---
TITRATED PROPOFOL 10 MCG/KG/MIN AND TITRATED PRECEDEX 1 MCG/KG/MIN. WILL CONTINUE TO MONITOR PATIENT
--- NOTE | 2020-11-15 22:40 | NUR ---
TITRATED PRECEDEX 1 MC/KG/MIN. WILL CONTINUE TO MONITOR PATIENT
--- NOTE | 2020-11-15 22:45 | NUR ---
Note mickey in EDM - 11/16/20 at 0136 by [email or web address] Patient restless in bed. Able to nod head when asked questions. Patient is requesting to be sedated. Patient is fighting the ET tube. Dr. Roman called for orders.
[2020-11-15 22:47] VITALS: BP_SYST 132
--- NOTE | 2020-11-15 22:50 | NUR ---
TRITATED PROPOFOL 10 MCG/KG/MIN AND TITRATED PRECEDEX 0.4 MC/KG/MIN. WILL CONTINUE TO MONITOR PATIENT
--- NOTE | 2020-11-15 23:00 | NUR ---
Precedex DC'd. Addendum: 11/16/20 at 0130 by [email or web address] TITRATED PROPOFOL 15 MCG/KG/MIN patient tolerating well
[2020-11-16] MEDS: D5NS 1,000 ML IV SCH ×2 (00:20→14:45)
[2020-11-16] MEDS: CEFEPIME 0.5 GM in D5W 50 ML IV SCH ×3 (00:21→22:01)
[2020-11-16] MEDS: METOCLOPRAMIDE HCL 10 MG/2 ML VIAL IVP SCH ×4 (00:22→18:00)
--- NOTE | 2020-11-16 00:35 | NUR ---
Urine back emptied 2000 mL removed.
--- NOTE | 2020-11-16 01:00 | NUR ---
Patient cleansed with chlorhexidine, positioned on right side. Mepilex placed on sacral area. Skin intact at this time. Linens changed and pulled up in bed. Vital signs stable at this time. We will continue to monitor.
--- NOTE | 2020-11-16 02:00 | NUR ---
Patient resting comfortably in bed. No acute distress noted. Patient is currently on propofol 10 mcg/kg/min. Vital signs stable at this time.
--- NOTE | 2020-11-16 02:00 | NUR ---
Tube feeding started, Vital AF at 20 ml/hr
--- NOTE | 2020-11-16 02:30 | NUR ---
Patient coughed large amount of sputum. Patient desatted to 88%. Patient's blood pressure is 94/72. Respirations are at 32. Patient suctioned in the mouth and trachea. Saturations are now 94%. Propofol titrated up to 15 mcg/kg/min.
--- NOTE | 2020-11-16 02:55 | NUR ---
Patient's blood pressure is now 81/50 heart rate is 73 SPO2 91% and respirations 29. Patient is currently on 15 mcg/kg/min of propofol. Levophed 0.1 mcg/kg/min was started at this time. Will re assess in 5 minutes.
--- NOTE | 2020-11-16 03:00 | NUR ---
Paz arevalo in EDM - 11/16/20 at 0420 by [email or web address] Patient's blood pressure is currently 82/47.Titrating Levophed 0.2 mcg/kg/min
--- NOTE | 2020-11-16 03:00 | NUR ---
Patient's blood pressure is currently 82/47.Titrating Levophed 0.13 mcg/kg/min
--- NOTE | 2020-11-16 03:10 | NUR ---
Note mickey in ED - 11/16/20 at 0433 by [email or web address] Titrated propofol to 30 mcg/kg/min. Patient is restless has periods of tachypnea.
--- NOTE | 2020-11-16 04:10 | NUR ---
Titrated propofol to 30 mcg/kg/hr. Patient is restless has periods of tachypnea.
--- NOTE | 2020-11-16 04:15 | NUR ---
Patient is awake and alert. Titrated propofol to 35 mcg/kg/hr. Patient is restless has periods of tachypnea.
--- NOTE | 2020-11-16 04:20 | NUR ---
Note mickey in ED - 11/16/20 at 0435 by [email or web address] Patient is awake and alert. Titrated propofol to 35 mcg/kg/hr. Patient is restless has periods of tachypnea.
--- NOTE | 2020-11-16 04:20 | NUR ---
Patient is awake and alert. Titrated propofol to 40 mcg/kg/min. Will continue to monitor.
--- NOTE | 2020-11-16 04:20 | NUR ---
Note mickey in ED - 11/16/20 at 0426 by [email or web address] Patient is awake and alert. Titrated propofol to 30 mcg/kg/hr. Patient is restless has periods of tachypnea.
--- NOTE | 2020-11-16 04:25 | NUR ---
Patient is awake and alert. Titrated propofol to 45 mcg/kg/min. Will continue to monitor.
--- NOTE | 2020-11-16 04:30 | NUR ---
Patient resting quietly. No acute distress noted. Vital signs within normal range.
--- NOTE | 2020-11-16 05:17 | NUR ---
Patient resting quietly. No acute distress noted. Report given to VU Colbert for continuation of care.
[2020-11-16 05:49] LABS: ALANINE AMINOTRANSFERASE 113 U/L (12-78); ANION GAP 12 (5-15); ASPARTATE AMINOTRANSFERASE 71 U/L (10-37); CALCIUM 7.4 mg/dL (8.4-11.0); CHLORIDE 107 mmol/L (98-107); CREATININE 1.07 mg/dL (0.55-1.30); GLUCOSE 142 mg/dL (70-99); POTASSIUM 4.1 mmol/L (3.5-5.1); SODIUM SERUM 140 mmol/L (136-145); UREA NITROGEN, BLOOD 35 mg/dL (8-21)
[2020-11-16 05:57] VITALS: BP_SYST 147
--- NOTE | 2020-11-16 06:29 | NUR ---
Tube feeding total given 200ml
--- NOTE | 2020-11-16 06:45 | NUR ---
Report given to VU Marie
[2020-11-16 06:48] LABS: BASOPHILS % (AUTO) 0.2 % (0.0-2.0); EOSINOPHILS % (AUTO) 0.1 % (0.0-4.0); HEMATOCRIT 37.3 % (36-54); HEMOGLOBIN 12.5 g/dL (14.0-18.0); LYMPHOCYTES # (AUTO) 0.4 K/uL (1.0-5.5); LYMPHOCYTES % (AUTO) 3.9 % (20.5-51.5); MEAN CORPUSCULAR HEMOGLOBIN 30 pg (27-31); MEAN CORPUSCULAR HGB CONC 34 % (32-36); MEAN CORPUSCULAR VOLUME 90 fL (79.0-98.0); MONOCYTES # (AUTO) 0.6 K/uL (0.0-1.0); MONOCYTES % (AUTO) 5.9 % (1.7-9.3); NEUTROPHILS # (AUTO) 9.9 K/uL (1.8-7.7); NEUTROPHILS % (AUTO) 89.9 % (40.0-70.0); PLATELET COUNT (AUTO) 225 K/uL (130-430); RED BLOOD CELL COUNT(AUTO) 4.14 MIL/uL (4.2-6.2); RED CELL DISTRIBUTION WIDTH 14.4 % (9.0-15.0)
--- NOTE | 2020-11-16 07:01 | NUR ---
BS 190, Given Insulin R 2 unit SQ as protocol
[2020-11-16] MEDS ORDERED: INSULIN REGULAR, HUMAN 10 UNITS/0.1 ML INJ ONE (07:06)
[2020-11-16 07:09] LABS: C-REACTIVE PROTEIN QUANT 6.6 mg/dL (0-0.5)
[2020-11-16 07:50] VITALS: BP_SYST 122
[2020-11-16 08:29] LABS: ERYTHROCYTE SEDIMENTATION RATE 81 MM/HR (0-15)
[2020-11-16] MEDS: AZITHROMYCIN 250 MG in NS 250 ML IV SCH (09:00)
[2020-11-16] MEDS: CHOLECALCIFEROL (VITAMIN D3) 2,000 UNIT TABLET PO SCH (09:00)
[2020-11-16] MEDS: ENOXAPARIN SODIUM 60 MG/0.6 ML SYRINGE SUBCUT SCH (09:00)
[2020-11-16] MEDS: PANTOPRAZOLE SODIUM 40 MG/VIAL (PROTONIX) IV SCH (10:19)
[2020-11-16] MEDS: ASCORBIC ACID 500 MG TABLET PO SCH (10:19)
[2020-11-16 11:15] VITALS: BP_SYST 80
--- NOTE | 2020-11-16 11:52 | NUR ---
Levophed increased to 0.5 MCG/MIN since BS 83/53
--- NOTE | 2020-11-16 11:57 | NUR ---
Levophed decreased to 0.3 MCG/MIN since BP 185/83
--- NOTE | 2020-11-16 12:01 | NUR ---
Levophed decreased to 0.1MCG/MIN due to BP 168/84
--- NOTE | 2020-11-16 12:15 | NUR ---
RT NOTE: 1215 Pt extubated and placed on 6LPM NC. Pt did not tolerate nasal cannula. Placed on 10LPM simple mask. SpO2 ranges between 87-94%. Pt awake and alert. Encouraged to take deep breaths. RN at bedside. Will continue to monitor pt's SpO2.
[2020-11-16] MEDS: DEXAMETHASONE SOD PHOSPHATE 10 MG/ML VIAL IVP SCH (14:56)
--- NOTE | 2020-11-16 17:20 | NUR ---
Patient urinated 775 cc sujey clear urine per mota cath. Addendum: 11/16/20 at 1720 by [email or web address] Patient had one medium brown loose bowel movement
--- NOTE | 2020-11-16 19:40 | NUR ---
PT AND REPORT RECEIVED FROM [facility] 3 RN ALERT FOLLOWS COMMANDS SINUS RHYTHM 02 MASK 8 LITERS
[2020-11-16] MEDS ORDERED: CEFEPIME 1 GM/VIAL (MAXIPIME) ONE (21:46)
[2020-11-16] MEDS: INSULIN GLARGINE 100 UNITS/ML 10 ML VIAL SUBCUT SCH (22:00)
--- NOTE | 2020-11-16 22:00 | NUR ---
PT AOX3 FOLLOWS COMMANDS NO DISTRESS NOTED
--- NOTE | 2020-11-16 23:50 | NUR ---
PT ASSISTED TO REPOSITION NO DISTRESS NOTED
[2020-11-17] MEDS: METOCLOPRAMIDE HCL 10 MG/2 ML VIAL IVP SCH ×5 (00:47→23:07)
--- NOTE | 2020-11-17 02:00 | NUR ---
PT EASILY AROUSED FROM SLEEP NO C/O PAIN
--- NOTE | 2020-11-17 06:24 | NUR ---
PT ACCU CK 103 NO COVERAGE MUNOZ 380ML URINE OUT PT AOX3 NO DISTRESS NOTED
[2020-11-17 06:41] LABS: BASOPHILS % (AUTO) 0.4 % (0.0-2.0); EOSINOPHILS % (AUTO) 0.4 % (0.0-4.0); HEMATOCRIT 33.1 % (36-54); HEMOGLOBIN 11.1 g/dL (14.0-18.0); LYMPHOCYTES # (AUTO) 0.7 K/uL (1.0-5.5); LYMPHOCYTES % (AUTO) 8.8 % (20.5-51.5); MEAN CORPUSCULAR HEMOGLOBIN 30 pg (27-31); MEAN CORPUSCULAR HGB CONC 34 % (32-36); MEAN CORPUSCULAR VOLUME 90 fL (79.0-98.0); MONOCYTES # (AUTO) 0.6 K/uL (0.0-1.0); MONOCYTES % (AUTO) 7.1 % (1.7-9.3); NEUTROPHILS # (AUTO) 6.5 K/uL (1.8-7.7); NEUTROPHILS % (AUTO) 83.3 % (40.0-70.0); PLATELET COUNT (AUTO) 184 K/uL (130-430); RED BLOOD CELL COUNT(AUTO) 3.68 MIL/uL (4.2-6.2); RED CELL DISTRIBUTION WIDTH 14.1 % (9.0-15.0); WHITE BLOOD COUNT (AUTO) 7.8 K/uL (4.8-10.8)
[2020-11-17 07:05] LABS: ALANINE AMINOTRANSFERASE 70 U/L (12-78); ALBUMIN 1.6 g/dL (3.4-4.8); ANION GAP 7 (5-15); C-REACTIVE PROTEIN QUANT 3.6 mg/dL (0-0.5); CHLORIDE 110 mmol/L (98-107); CREATININE 1.05 mg/dL (0.55-1.30); GLUCOSE 110 mg/dL (70-99); POTASSIUM 4.4 mmol/L (3.5-5.1); SODIUM SERUM 139 mmol/L (136-145); TOTAL BILIRUBIN 0.5 mg/dL (0.0-1.0); UREA NITROGEN, BLOOD 36 mg/dL (8-21)
--- NOTE | 2020-11-17 07:13 | NUR ---
PT AND REPORT TO DAY VU JACK
--- NOTE | 2020-11-17 07:16 | NUR ---
Paz arevalo in [facility] - 11/17/20 at 0716 by HEMALATHA Pt report given to VU Walker.
--- NOTE | 2020-11-17 07:20 | NUR ---
Assumed care of patient, report received from VU Sesay. Pt currently resting in bed, no distress noted.
[2020-11-17 08:31] LABS: ASPARTATE AMINOTRANSFERASE 33 U/L (10-37); CALCIUM 7.3 mg/dL (8.4-11.0)
[2020-11-17] MEDS: AZITHROMYCIN 250 MG in NS 250 ML IV SCH (09:00)
[2020-11-17 09:33] LABS: ERYTHROCYTE SEDIMENTATION RATE 64 MM/HR (0-15)
[2020-11-17] MEDS: CHOLECALCIFEROL (VITAMIN D3) 2,000 UNIT TABLET PO SCH (09:43)
[2020-11-17] MEDS: ASCORBIC ACID 500 MG TABLET PO SCH (09:43)
[2020-11-17] MEDS: PANTOPRAZOLE SODIUM 40 MG/VIAL (PROTONIX) IV SCH (09:46)
[2020-11-17] MEDS: CEFEPIME 0.5 GM in D5W 50 ML IV SCH ×2 (09:46→21:25)
[2020-11-17] MEDS: ENOXAPARIN SODIUM 60 MG/0.6 ML SYRINGE SUBCUT SCH (09:49)
[2020-11-17] MEDS: D5NS 1,000 ML IV SCH (10:30)
--- NOTE | 2020-11-17 10:51 | NUR ---
SPOKE WITH DR VILLALBA REGARDING DOWN GRADING PT, PT HAS BEEN ON 3L N/C FOR 1 HOURS WITH SATURATIONS AT 98% Addendum: 11/17/[address] VILLALBA STATES TO CALL DR ROJO AND IF IT OK WITH DR ROJO THEN DOWN GRADE PT TO TELEMETRY
[2020-11-17] MEDS: DEXAMETHASONE SOD PHOSPHATE 10 MG/ML VIAL IVP SCH (15:59)
--- NOTE | 2020-11-17 16:28 | NUR ---
sitting up talking with family, no distress, sao2 > 90% on 4l nc
--- NOTE | 2020-11-17 18:43 | NUR ---
ALERT, CALM, FACETIME WITH FAMILY
--- NOTE | 2020-11-17 20:11 | NUR ---
CALM, ALERT, RESP UNLABORED, DENIES CP/SOB. SKIN WARM AND DRY. NO DISTRESS
[2020-11-17] MEDS: INSULIN GLARGINE 100 UNITS/ML 10 ML VIAL SUBCUT SCH (21:23)
[2020-11-17] MEDS: INSULIN LISPRO SLIDING SCALE 100 UNITS/ML VIAL (humaLOG) SUBCUT PRN (21:24)
--- NOTE | 2020-11-17 22:29 | NUR ---
CALM, ALERT, RESP UNLABORED, TOLERATING NC WELL SAO2 >90% ON 2L NC TOLERATING PO WELL. SMALL OBSERVED SIPS/SOFT BITES. SWALLOW INTACT
--- NOTE | 2020-11-17 23:15 | NUR ---
Took over care, pt VSS no s/s of acute distress Resting on gurney rails up
--- NOTE | 2020-11-18 00:28 | NUR ---
VSS no s/s of acute distress O2 sat above 94%
--- NOTE | 2020-11-18 01:37 | NUR ---
Pt verbalized "feeling a bit better." Resting on hospital bed rails up
--- NOTE | 2020-11-18 02:55 | NUR ---
Pt difficult to sleep, currently playing on mobile phone
--- NOTE | 2020-11-18 04:00 | NUR ---
VSS, pt's NC adjusted for fit and comfort, O2 sat remains stable at 94% or above
[2020-11-18] MEDS: METOCLOPRAMIDE HCL 10 MG/2 ML VIAL IVP SCH ×2 (05:08→18:00)
--- NOTE | 2020-11-18 05:25 | NUR ---
Emptied out 1.5 L clear yellow urine via mota
[2020-11-18] MEDS: D5NS 1,000 ML IV SCH ×2 (06:31→23:02)
--- NOTE | 2020-11-18 06:32 | NUR ---
VVS NO S/S OF ACUTE DISTRESS RESTING ON HOSPITAL BED RAILS UP
[2020-11-18 06:47] LABS: BASOPHILS # (AUTO) 0.1 K/uL (0.0-0.2); BASOPHILS % (AUTO) 0.7 % (0.0-2.0); EOSINOPHILS % (AUTO) 0.3 % (0.0-4.0); HEMATOCRIT 38.2 % (36-54); LYMPHOCYTES # (AUTO) 0.6 K/uL (1.0-5.5); LYMPHOCYTES % (AUTO) 8.2 % (20.5-51.5); MEAN CORPUSCULAR HEMOGLOBIN 30 pg (27-31); MEAN CORPUSCULAR HGB CONC 34 % (32-36); MONOCYTES # (AUTO) 0.7 K/uL (0.0-1.0); NEUTROPHILS # (AUTO) 6.4 K/uL (1.8-7.7); NEUTROPHILS % (AUTO) 81.8 % (40.0-70.0); PLATELET COUNT (AUTO) 193 K/uL (130-430); RED BLOOD CELL COUNT(AUTO) 4.32 MIL/uL (4.2-6.2); RED CELL DISTRIBUTION WIDTH 14.1 % (9.0-15.0); WHITE BLOOD COUNT (AUTO) 7.9 K/uL (4.8-10.8)
--- NOTE | 2020-11-18 07:05 | NUR ---
Assumed care of patient, report received from VU Clemente. Pt currently resting in bed, no distress noted.
[2020-11-18 07:32] LABS: C-REACTIVE PROTEIN QUANT 3.7 mg/dL (0-0.5)
[2020-11-18 07:36] LABS: MEAN CORPUSCULAR VOLUME 88 fL (79.0-98.0)
[2020-11-18 07:39] LABS: CALCIUM 7.5 mg/dL (8.4-11.0); CREATININE 0.88 mg/dL (0.55-1.30); POTASSIUM 4.1 mmol/L (3.5-5.1)
[2020-11-18 08:25] LABS: ERYTHROCYTE SEDIMENTATION RATE 75 MM/HR (0-15)
--- NOTE | 2020-11-18 08:30 | NUR ---
Received call back from Adriana speech therapist. Stated she will be by early this afternoon to complete his swallow eval.
[2020-11-18] MEDS: ENOXAPARIN SODIUM 60 MG/0.6 ML SYRINGE SUBCUT SCH (09:00)
[2020-11-18] MEDS: CEFEPIME 0.5 GM in D5W 50 ML IV SCH ×2 (09:00→21:00)
[2020-11-18] MEDS: ASCORBIC ACID 500 MG TABLET PO SCH (10:08)
[2020-11-18] MEDS: CHOLECALCIFEROL (VITAMIN D3) 2,000 UNIT TABLET PO SCH (10:08)
[2020-11-18] MEDS: PANTOPRAZOLE SODIUM 40 MG/VIAL (PROTONIX) IV SCH (10:09)
[2020-11-18] MEDS: AZITHROMYCIN 250 MG in NS 250 ML IV SCH (10:10)
--- NOTE | 2020-11-18 11:30 | NUR ---
Received verbal order from Dr. Roman to downgrade pt to Telemetry unit. Pt will go to room 132A
--- NOTE | 2020-11-18 11:50 | NUR ---
Patient will be admitted to care of Dr. Arana. Admitted to tele unit. Will go to room 132A Belongings list completed. Complete and up to date summary report printed. SBAR report to be given at bedside with opportunity for questions.
[2020-11-18 13:00] VITALS: BP_SYST 119
--- NOTE | 2020-11-18 13:08 | NUR ---
Nutrition F/U RD reviewed pt's current EMR record including diet Hx, physician notes, nursing notes, pertinent labs/meds/procedures, care trends, and care activity. Admission Dx: Respiratory failure PMH: HTN, DJD, DLD, COPD, BPH, DM per physician notes SARS-CoV-2 Ag (Rapid) Positive 11/11/20 Current Diet Order/Nutrition Support: Regular, 2 gm Na x0 days -- NPO observed at this time per STEEL CHIPPER report Subjective Info: RD bedside visit deferred d/t isolation precautions and PPE conservation efforts. RD spoke w/ STEEL CHIPPER who reported that pt was recently transferred to room 132A, and pending active ST swallow eval order which will be carried out this afternoon, and that pt will remain NPO until after swallow eval. Per EMR review, pt was successfully extubated yesterday, 11/17/20, and has been on 2 L NC. Pt is not yet meeting nutritional needs and is at increased risk for malnutrition. Pertinent Medications: Vit D, Vit C, Zinc, lantus, Decadron Pertinent Labs: BUN 25 H (trending down), CRE 0.88 WNL (improved), BG 90 WNL (improved), POC BS 202 H (trending up), CRP 3.7 H, ALB 1.6 L Weight (Pounds) 110 pounds -- stable, no apparent changes 11/13/20 Weight (Calculated Kilograms) 49.463126 kilograms Skin Integrity Comment: No Emiliano Scale or PIs noted per EMR. NEW Estimated Energy Expenditure (kcals/day) 3190-3695 kcal/day (30-35 kcal/lg IBW for sepsis, acute state) NEW Estimated Protein Required (g/day) 89-118 g/day (1.5-2g/kg based on IBW for sepsis, COVID) NEW Estimated Fluid Required (l/day) 1.8-2 L/day (1 ml/kcal/day based on CBW for maintenance) Problem/Etiology/Signs/Symptoms Increased nutrient needs r/t increased metabolic demands AEB pt w/ sepsis and COVID-19. *ongoing Inadequate nutritional intakes related to recent extubation as evidenced by pending ST swallow eval and NPO observance. *new Expected Outcomes/Goals Monitor provision of nutrition support w/ goal of pt meeting at least 75% of estimated nutritional needs, labs trending WNL, normal GI function, and skin integrity/wt maintenance Dietitian Recommendations * Recommend continuing NPO until after ST swallow eval results Follow Up High Risk: F/U in 2-3 days
--- NOTE | 2020-11-18 13:16 | NUR ---
Dietitian Recommendations * Recommend continuing NPO until after ST swallow eval results LP, RD Please refer to Nutrition F/U for details.
--- NOTE | 2020-11-18 15:07 | NUR ---
Daughter works at [facility] [facility] [employer]-she would like pt to be discharged to this facility. Referral packet faxed to this facility [phone]. . Swallow evaluation pending for patient
[2020-11-18] MEDS: DEXAMETHASONE SOD PHOSPHATE 10 MG/ML VIAL IVP SCH (16:06)
[2020-11-18 16:13] VITALS: BP_SYST 136
--- NOTE | 2020-11-18 16:18 | NUR ---
SWALLOW EVAL SWALLOW EVAL COMPLETED. PT PRESENTS W/ ML ORAL DYSPHAGIA W/ PROLONGED AND LABORED MASTICATION. NO S/S OF ASPIRATION. REC: MECH SOFT FINELY CHOPPED DIET. THIN LIQUIDS OK. NURSE NORTH NOTIFIED.
[2020-11-18 16:46] VITALS: BP_SYST 146
[2020-11-18 20:00] VITALS: BP_SYST 132
[2020-11-18] MEDS: INSULIN GLARGINE 100 UNITS/ML 10 ML VIAL SUBCUT SCH (21:00)
[2020-11-18] MEDS: INSULIN LISPRO SLIDING SCALE 100 UNITS/ML VIAL (humaLOG) SUBCUT PRN (22:58)
[2020-11-19 00:50] VITALS: BP_SYST 140
[2020-11-19] MEDS: METOCLOPRAMIDE HCL 10 MG/2 ML VIAL IVP SCH ×4 (06:55→16:53)
--- NOTE | 2020-11-19 07:12 | NUR ---
CLOSING NOTES PATIENT RESTING, NO SIGNS OF SHORTNESS OF BREATH AT THIS TIME, 5L NC. IV SITE PATENT, DRESSINGS C/D/I, IVF RUNNING. CALL LIGHT WITHIN REACH, BED ALARM ON, BED AT LOWEST POSITION. ALL NEEDS MET THROUGHOUT SHIFT. WILL ENDORSE CARE TO ONCOMING SHIFT.
[2020-11-19 07:37] LABS: BASOPHILS % (AUTO) 0.1 % (0.0-2.0); EOSINOPHILS % (AUTO) 0.1 % (0.0-4.0); HEMATOCRIT 34.4 % (36-54); HEMOGLOBIN 11.8 g/dL (14.0-18.0); LYMPHOCYTES # (AUTO) 0.7 K/uL (1.0-5.5); LYMPHOCYTES % (AUTO) 7.2 % (20.5-51.5); MEAN CORPUSCULAR HEMOGLOBIN 30 pg (27-31); MEAN CORPUSCULAR HGB CONC 34 % (32-36); MEAN CORPUSCULAR VOLUME 88 fL (79.0-98.0); MONOCYTES # (AUTO) 0.9 K/uL (0.0-1.0); MONOCYTES % (AUTO) 8.9 % (1.7-9.3); NEUTROPHILS # (AUTO) 8.1 K/uL (1.8-7.7); NEUTROPHILS % (AUTO) 83.7 % (40.0-70.0); PLATELET COUNT (AUTO) 221 K/uL (130-430); RED BLOOD CELL COUNT(AUTO) 3.92 MIL/uL (4.2-6.2); RED CELL DISTRIBUTION WIDTH 13.8 % (9.0-15.0); WHITE BLOOD COUNT (AUTO) 9.7 K/uL (4.8-10.8)
[2020-11-19 08:00] VITALS: BP_SYST 165
[2020-11-19 08:13] LABS: ANION GAP 9 (5-15); CALCIUM 7.8 mg/dL (8.4-11.0); CHLORIDE 106 mmol/L (98-107); CREATININE 0.87 mg/dL (0.55-1.30); GLUCOSE 116 mg/dL (70-99); POTASSIUM 3.8 mmol/L (3.5-5.1); SODIUM SERUM 137 mmol/L (136-145); UREA NITROGEN, BLOOD 27 mg/dL (8-21)
[2020-11-19] MEDS: ENOXAPARIN SODIUM 60 MG/0.6 ML SYRINGE SUBCUT SCH (09:51)
[2020-11-19] MEDS: PANTOPRAZOLE SODIUM 40 MG/VIAL (PROTONIX) IV SCH (09:53)
[2020-11-19] MEDS: ASCORBIC ACID 500 MG TABLET PO SCH (09:53)
[2020-11-19] MEDS: AZITHROMYCIN 250 MG in NS 250 ML IV SCH (09:54)
[2020-11-19] MEDS: CHOLECALCIFEROL (VITAMIN D3) 2,000 UNIT TABLET PO SCH (09:54)
[2020-11-19] MEDS ORDERED: FUROSEMIDE 20 MG/2 ML VIAL IVP ONE (11:00)
--- NOTE | 2020-11-19 11:00 | NUR ---
PATIENT'S O2 DECLINED TO 75-90%. NON-REBREATHER APPLIED. PATIENT CONTINUED TO DROP. RESPIRATORY PAGED. BIPAP INTIATED. MD MADE AWARE. PATIENT IS RESTING WITH BIPAP ON AND O2 >95%. WILL CONTINUE TO MONITOR. SPOKE WITH DAUGHTER TO MAKE AWARE.
[2020-11-19 12:15] VITALS: BP_SYST 144
[2020-11-19] MEDS: DEXAMETHASONE SOD PHOSPHATE 10 MG/ML VIAL IVP SCH (14:19)
--- NOTE | 2020-11-19 14:20 | NUR ---
DC Planning: Per Melina [facility]: the case is being reviewed by admission office. No accepting decision yet. Addendum: 11/19/20 at 1446 by Madeline Sandhu RN >> Per Melina, the pt is accepted, gave bed #12 available tomorrow after 1200 pm , report # [phone], VU Carey made aware Per Alexis's note : Pt was extubated on 11/16, was on O2 6L and desaturating today. Bipap initiated. The pt may not be ready for transfer tomorrow.
[2020-11-19 16:03] VITALS: BP_SYST 121
[2020-11-19 19:00] VITALS: BP_SYST 107
[2020-11-19 20:00] VITALS: BP_SYST 107
[2020-11-19] MEDS: INSULIN GLARGINE 100 UNITS/ML 10 ML VIAL SUBCUT SCH (21:00)
[2020-11-19] MEDS: FUROSEMIDE 20 MG/2 ML VIAL IVP SCH (21:00)
[2020-11-19] MEDS: D5NS 1,000 ML IV SCH (22:30)
[2020-11-20] VITALS (7 sets, daily range): BP systolic 98–140
[2020-11-20] MEDS: METOCLOPRAMIDE HCL 10 MG/2 ML VIAL IVP SCH ×4 (00:05→18:04)
--- NOTE | 2020-11-20 06:24 | NUR ---
RT NOTES 0518 PATIENT OFF OF BIPAP. BEFORE COMING OFF OF BIPAP 14/,F24,50%FIO2. HR 65 SATS 98%. NO RESPIRATORY DISTRESS NOTED. PATIENT PLACED ON 100% NON REBREATHER. HR 67 SATS 99%.NO RESPIRATORY DISTRESS NOTED. VU SHAH MADE AWARE.
[2020-11-20] MEDS: PANTOPRAZOLE SODIUM 40 MG/VIAL (PROTONIX) IV SCH (08:39)
[2020-11-20] MEDS: CHOLECALCIFEROL (VITAMIN D3) 2,000 UNIT TABLET PO SCH (08:41)
[2020-11-20] MEDS: ASCORBIC ACID 500 MG TABLET PO SCH (08:41)
[2020-11-20] MEDS: FUROSEMIDE 20 MG/2 ML VIAL IVP SCH ×2 (08:43→21:00)
[2020-11-20 08:44] LABS: BASOPHILS % (AUTO) 0.3 % (0.0-2.0); EOSINOPHILS % (AUTO) 0.1 % (0.0-4.0); HEMATOCRIT 35.2 % (36-54); HEMOGLOBIN 11.7 g/dL (14.0-18.0); LYMPHOCYTES # (AUTO) 0.8 K/uL (1.0-5.5); LYMPHOCYTES % (AUTO) 6.9 % (20.5-51.5); MEAN CORPUSCULAR HEMOGLOBIN 30 pg (27-31); MEAN CORPUSCULAR HGB CONC 33 % (32-36); MEAN CORPUSCULAR VOLUME 90 fL (79.0-98.0); MONOCYTES # (AUTO) 0.7 K/uL (0.0-1.0); MONOCYTES % (AUTO) 6.5 % (1.7-9.3); NEUTROPHILS # (AUTO) 9.9 K/uL (1.8-7.7); NEUTROPHILS % (AUTO) 86.2 % (40.0-70.0); PLATELET COUNT (AUTO) 196 K/uL (130-430); RED BLOOD CELL COUNT(AUTO) 3.93 MIL/uL (4.2-6.2); RED CELL DISTRIBUTION WIDTH 14.2 % (9.0-15.0); WHITE BLOOD COUNT (AUTO) 11.5 K/uL (4.8-10.8)
[2020-11-20] MEDS: ENOXAPARIN SODIUM 60 MG/0.6 ML SYRINGE SUBCUT SCH (08:44)
[2020-11-20 09:11] LABS: ANION GAP 6 (5-15); CALCIUM 7.9 mg/dL (8.4-11.0); CHLORIDE 106 mmol/L (98-107); GLUCOSE 91 mg/dL (70-99); POTASSIUM 4.1 mmol/L (3.5-5.1); SODIUM SERUM 137 mmol/L (136-145); UREA NITROGEN, BLOOD 44 mg/dL (8-21)
[2020-11-20] MEDS: AZITHROMYCIN 250 MG in NS 250 ML IV SCH (13:37)
--- NOTE | 2020-11-20 14:06 | NUR ---
Discharge Planning Patient's daughter, Hilary [phone], left a vm message requesting contact number for [facility]. Phoned back and left a voicemail with the information. Noted that patient was intubated/extubated and is currently on a nonrebreather. CM will follow up tomorrow regarding pending discharge to SNF. Patient was accepted to [facility] 12 for today, p [phone] f [phone]. Notified them of patient's worsened respiratory status and discharge on hold for now.
--- NOTE | 2020-11-20 17:32 | NUR ---
New PIV started in RFA #22
[2020-11-20] MEDS: DEXAMETHASONE SOD PHOSPHATE 10 MG/ML VIAL IVP SCH (18:02)
[2020-11-20] MEDS: D5NS 1,000 ML IV SCH (18:29)
[2020-11-20] MEDS: INSULIN GLARGINE 100 UNITS/ML 10 ML VIAL SUBCUT SCH (21:00)
[2020-11-21 04:34] VITALS: BP_SYST 130
[2020-11-21] MEDS: METOCLOPRAMIDE HCL 10 MG/2 ML VIAL IVP SCH ×4 (06:46→17:18)
[2020-11-21 07:19] LABS: BASOPHILS % (AUTO) 0.3 % (0.0-2.0); HEMATOCRIT 33.2 % (36-54); HEMOGLOBIN 10.9 g/dL (14.0-18.0); LYMPHOCYTES # (AUTO) 0.4 K/uL (1.0-5.5); LYMPHOCYTES % (AUTO) 3.1 % (20.5-51.5); MEAN CORPUSCULAR HEMOGLOBIN 29 pg (27-31); MEAN CORPUSCULAR HGB CONC 33 % (32-36); MEAN CORPUSCULAR VOLUME 89 fL (79.0-98.0); MONOCYTES # (AUTO) 0.3 K/uL (0.0-1.0); MONOCYTES % (AUTO) 2.7 % (1.7-9.3); NEUTROPHILS # (AUTO) 10.6 K/uL (1.8-7.7); NEUTROPHILS % (AUTO) 93.9 % (40.0-70.0); PLATELET COUNT (AUTO) 269 K/uL (130-430); RED BLOOD CELL COUNT(AUTO) 3.72 MIL/uL (4.2-6.2); RED CELL DISTRIBUTION WIDTH 14.2 % (9.0-15.0); WHITE BLOOD COUNT (AUTO) 11.3 K/uL (4.8-10.8)
[2020-11-21 07:54] LABS: ANION GAP 9 (5-15); CALCIUM 8.7 mg/dL (8.4-11.0); CHLORIDE 106 mmol/L (98-107); CREATININE 1.17 mg/dL (0.55-1.30); GLUCOSE 104 mg/dL (70-99); SODIUM SERUM 142 mmol/L (136-145); UREA NITROGEN, BLOOD 50 mg/dL (8-21)
[2020-11-21 08:00] VITALS: BP_SYST 131
[2020-11-21] MEDS: FUROSEMIDE 20 MG/2 ML VIAL IVP SCH ×2 (09:00→20:51)
[2020-11-21] MEDS: CHOLECALCIFEROL (VITAMIN D3) 2,000 UNIT TABLET PO SCH (09:41)
[2020-11-21] MEDS: ASCORBIC ACID 500 MG TABLET PO SCH (09:41)
[2020-11-21] MEDS: PANTOPRAZOLE SODIUM 40 MG/VIAL (PROTONIX) IV SCH (09:42)
[2020-11-21] MEDS: ENOXAPARIN SODIUM 60 MG/0.6 ML SYRINGE SUBCUT SCH (09:44)
[2020-11-21 13:45] VITALS: BP_SYST 127
--- NOTE | 2020-11-21 14:33 | NUR ---
Nutrition F/U RD reviewed pt's current EMR record including diet Hx, physician notes, nursing notes, pertinent labs/meds/procedures, care trends, and care activity. Admission Dx: Respiratory failure PMH: HTN, DJD, DLD, COPD, BPH, DM per physician notes SARS-CoV-2 Ag (Rapid) Positive 11/11/20 Current Diet Order/Nutrition Support: Mechanical soft finely chopped diet Subjective Info: Bedside visit deferred d/t surge charting and PPE conservation efforts. Per EMR, pt w/ good appetite and tolerating mechanical soft diet per CUTTER HELPER. No BM noted since 11/19. Pertinent Medications: Vit D, Vit C, Zinc, lantus, Decadron, Lasix, Lovenox, Insulin Pertinent Labs: 11/21 POC BG 137H, BUN 50H Weight (Pounds) 110 pounds -- stable, no apparent changes 11/13/20 Weight (Calculated Kilograms) 49.718106 kilograms Skin Integrity Comment: Emiliano scale: 18. Estimated Energy Expenditure (kcals/day) 9357-6574 kcal/day (30-35 kcal/lg IBW for sepsis, acute state) Estimated Protein Required (g/day) 89-118 g/day (1.5-2g/kg based on IBW for sepsis, COVID) Estimated Fluid Required (l/day) 1.8-2 L/day (1 ml/kcal/day based on CBW for maintenance) Problem/Etiology/Signs/Symptoms Increased nutrient needs r/t increased metabolic demands AEB pt w/ sepsis and COVID-19. *ongoing Inadequate nutritional intakes related to recent extubation as evidenced by pending ST swallow eval and NPO observance. *new Expected Outcomes/Goals Monitor appetite and intake w/ goal of pt meeting at least 75% of estimated nutritional needs, labs trending WNL, normal GI function, and skin integrity/wt maintenance Dietitian Recommendations * Recommend Mechanical soft finely chopped CCHO diet, Glucerna BID. Follow Up High Risk: F/U in 2-3 days
--- NOTE | 2020-11-21 14:39 | NUR ---
Dietitian Recommendations * Recommend Mechanical soft finely chopped CCHO diet, Glucerna BID. Please see Nutrition F/U note JUSTYN, RD
[2020-11-21] MEDS: DEXAMETHASONE SOD PHOSPHATE 10 MG/ML VIAL IVP SCH (16:59)
[2020-11-21] MEDS: D5NS 1,000 ML IV SCH (16:59)
[2020-11-21 17:11] VITALS: BP_SYST 126
--- NOTE | 2020-11-21 20:00 | NUR ---
CHANGE OF SHIFT; pt. pretty awake, on 100% NRM, O2 sat 97%. pt. denies any discomfort. on school bus monitor and shows sinus rhythm. IVF infusing via rt, arm. call light at bedside. on fall risk precautions. mota cath to OSD. VS checked. on contact isolation for Covid.
[2020-11-21 20:15] VITALS: BP_SYST 137
--- NOTE | 2020-11-21 20:15 | NUR ---
NOTES: pt. awake, HOB elevated. on 100% NRM. denies any shortness of breath. O@ sat 97%. IVF infusing via rt. arm. cardiac pattern shows sinus rhythm. bed alarm on, fall risk precaution.
[2020-11-21 21:00] VITALS: BP_SYST 126
--- NOTE | 2020-11-21 21:30 | NUR ---
NOTES: BS checked 155, due insulin given. pt. needs attended. call light at bedside.
[2020-11-21] MEDS: INSULIN GLARGINE 100 UNITS/ML 10 ML VIAL SUBCUT SCH (22:07)
--- NOTE | 2020-11-22 | NUR ---
NOTES: pt. IV leaking, stopped and flushed, resume IV, bed got wet. complete linen changed and gown. repositioned and pulled up in bed. instructed on deep breathing, noted some productive cough but unable to expectorate. kept HOB elevated.
[2020-11-22 00:30] VITALS: BP_SYST 136
--- NOTE | 2020-11-22 03:00 | NUR ---
NOTES: condition observed, continue to monitor. pt. sleeping.
--- NOTE | 2020-11-22 04:15 | NUR ---
NOTES: pt. awake when checked, sided down the bed. repositioned and turn to sides, pulled up in bed. kept on 100% NRM. wants pulse ox sensor all the time. fingers gets cold and not sensing the right O2 sat. IV site patent and continuous. cardiac pattern unchanged. call ligth at bedside.
--- NOTE | 2020-11-22 06:23 | NUR ---
CLOSING NOTES; pt. resting, kept @ 100% NRM, no distress. IV site patent,IVF infusing. mota cath intact. will check BS. call light within reach. for further care and assist. will endorse to incoming shift. contact isolation observed.
[2020-11-22 06:50] LABS: BASOPHILS % (AUTO) 0.2 % (0.0-2.0); EOSINOPHILS # (AUTO) 0.4 K/uL (0.0-0.4); EOSINOPHILS % (AUTO) 2.7 % (0.0-4.0); HEMATOCRIT 31.4 % (36-54); HEMOGLOBIN 10.5 g/dL (14.0-18.0); LYMPHOCYTES # (AUTO) 0.5 K/uL (1.0-5.5); LYMPHOCYTES % (AUTO) 3.8 % (20.5-51.5); MEAN CORPUSCULAR HEMOGLOBIN 30 pg (27-31); MEAN CORPUSCULAR HGB CONC 33 % (32-36); MEAN CORPUSCULAR VOLUME 89 fL (79.0-98.0); MONOCYTES # (AUTO) 0.7 K/uL (0.0-1.0); MONOCYTES % (AUTO) 5.4 % (1.7-9.3); NEUTROPHILS # (AUTO) 12.1 K/uL (1.8-7.7); NEUTROPHILS % (AUTO) 87.9 % (40.0-70.0); PLATELET COUNT (AUTO) 286 K/uL (130-430); RED BLOOD CELL COUNT(AUTO) 3.54 MIL/uL (4.2-6.2); RED CELL DISTRIBUTION WIDTH 14.2 % (9.0-15.0); WHITE BLOOD COUNT (AUTO) 13.8 K/uL (4.8-10.8)
[2020-11-22] MEDS: METOCLOPRAMIDE HCL 10 MG/2 ML VIAL IVP SCH ×4 (06:56→18:48)
[2020-11-22 07:35] LABS: ALANINE AMINOTRANSFERASE 123 U/L (12-78); ALBUMIN 1.9 g/dL (3.4-4.8); ANION GAP 8 (5-15); ASPARTATE AMINOTRANSFERASE 48 U/L (10-37); CALCIUM 8.4 mg/dL (8.4-11.0); CHLORIDE 108 mmol/L (98-107); GLUCOSE 84 mg/dL (70-99); POTASSIUM 3.9 mmol/L (3.5-5.1); SODIUM SERUM 145 mmol/L (136-145); TOTAL BILIRUBIN 0.8 mg/dL (0.0-1.0); UREA NITROGEN, BLOOD 42 mg/dL (8-21)
[2020-11-22 08:00] VITALS: BP_SYST 118
[2020-11-22] MEDS: ENOXAPARIN SODIUM 60 MG/0.6 ML SYRINGE SUBCUT SCH (09:00)
[2020-11-22] MEDS: FUROSEMIDE 20 MG/2 ML VIAL IVP SCH ×2 (09:00→21:27)
[2020-11-22] MEDS: ASCORBIC ACID 500 MG TABLET PO SCH (09:17)
[2020-11-22] MEDS: CHOLECALCIFEROL (VITAMIN D3) 2,000 UNIT TABLET PO SCH (09:17)
[2020-11-22] MEDS: PANTOPRAZOLE SODIUM 40 MG/VIAL (PROTONIX) IV SCH (09:18)
[2020-11-22] MEDS: D5NS 1,000 ML IV SCH (10:51)
[2020-11-22] MEDS: DEXAMETHASONE SOD PHOSPHATE 10 MG/ML VIAL IVP SCH (15:30)
[2020-11-22 18:11] VITALS: BP_SYST 129
--- NOTE | 2020-11-22 19:25 | NUR ---
CHANGE OF SHIFT; endorsed by day shift. been sleeping all day per day shift. no resp. distress. on contact isolation. call light within reach.
[2020-11-22 20:00] VITALS: BP_SYST 135
--- NOTE | 2020-11-22 20:35 | NUR ---
NOTES: pt. sleeping when checked, awakened for VS. awake ,alert and oriented. RT at bedside. on 100% NRM , continuous O2 sat monitoring 97-98%. on ladle liner and shows sinus rhythm. IV infusing via rt. forearm. mota cath to osd. bed alarm on. call light within reach. denies any discomfort. occ. bouts of cough, instructed on deep breathing. BS checked 149, no coverage.
[2020-11-22] MEDS: INSULIN GLARGINE 100 UNITS/ML 10 ML VIAL SUBCUT SCH (21:34)
[2020-11-23] MEDS: METOCLOPRAMIDE HCL 10 MG/2 ML VIAL IVP SCH ×4 (00:09→18:11)
--- NOTE | 2020-11-23 00:15 | NUR ---
NOTES: pt. sleeping when made rounds. pulse ox on, O2 sat 97%.
[2020-11-23 01:40] VITALS: BP_SYST 144
--- NOTE | 2020-11-23 04:15 | NUR ---
NOTES: ginny care done by OUTSIDE PLANT TECHNICIAN, noted mota cath leaking, saline water added to the balloon. pt. repositioned. continue to monitor.
[2020-11-23] MEDS: D5NS 1,000 ML IV SCH (04:24)
--- NOTE | 2020-11-23 06:43 | NUR ---
CLOSING NOTES; pt. already awake, no complaints. kept on 100% NRM. IVF patent. mota cath to osd. contact isolation observed. for further care and assist. will endorse to incoming shift.
[2020-11-23] MEDS: FUROSEMIDE 20 MG/2 ML VIAL IVP SCH ×2 (08:32→21:20)
[2020-11-23] MEDS: CHOLECALCIFEROL (VITAMIN D3) 2,000 UNIT TABLET PO SCH (08:32)
[2020-11-23] MEDS: ASCORBIC ACID 500 MG TABLET PO SCH (08:32)
[2020-11-23] MEDS: PANTOPRAZOLE SODIUM 40 MG TAB PO SCH (08:32)
[2020-11-23] MEDS: ENOXAPARIN SODIUM 60 MG/0.6 ML SYRINGE SUBCUT SCH (08:34)
--- NOTE | 2020-11-23 13:01 | NUR ---
PHYSICAL THERAPY CO-SIGN The Physical Therapy Progress Notes documented by Marketing Liaison have been reviewed. Reviewed/Co-Signed by: Galo Castillo Documentation Done by: AINSLEY NORMAN PTA Addendum: 11/23/20 at 1302 by Galo Castillo PT Amended: Links added.
[2020-11-23 13:36] VITALS: BP_SYST 135
--- NOTE | 2020-11-23 13:44 | NUR ---
Dietitian Note RD s/w pt's daughter Marguerite Black over the phone and RD answered all of family's questions about diet and noted food preferences. RD to follow per nutrition care standards. JUSTYN, PRABHJOT
[2020-11-23] MEDS: DEXAMETHASONE SOD PHOSPHATE 10 MG/ML VIAL IVP SCH (15:30)
[2020-11-23 16:00] VITALS: BP_SYST 151
[2020-11-23 20:00] VITALS: BP_SYST 137
[2020-11-23 20:04] VITALS: BP_SYST 151
[2020-11-23] MEDS: INSULIN GLARGINE 100 UNITS/ML 10 ML VIAL SUBCUT SCH (21:10)
[2020-11-24 01:44] VITALS: BP_SYST 134
[2020-11-24] MEDS: D5NS 1,000 ML IV SCH (02:30)
[2020-11-24] MEDS: METOCLOPRAMIDE HCL 10 MG/2 ML VIAL IVP SCH ×4 (06:00→18:43)
[2020-11-24 07:04] LABS: BASOPHILS % (AUTO) 0.2 % (0.0-2.0); HEMOGLOBIN 10.5 g/dL (14.0-18.0); LYMPHOCYTES # (AUTO) 0.4 K/uL (1.0-5.5); LYMPHOCYTES % (AUTO) 2.3 % (20.5-51.5); MEAN CORPUSCULAR HEMOGLOBIN 29 pg (27-31); MEAN CORPUSCULAR HGB CONC 33 % (32-36); MEAN CORPUSCULAR VOLUME 90 fL (79.0-98.0); MONOCYTES # (AUTO) 0.8 K/uL (0.0-1.0); MONOCYTES % (AUTO) 4.5 % (1.7-9.3); NEUTROPHILS # (AUTO) 16.2 K/uL (1.8-7.7); PLATELET COUNT (AUTO) 323 K/uL (130-430); RED BLOOD CELL COUNT(AUTO) 3.56 MIL/uL (4.2-6.2); RED CELL DISTRIBUTION WIDTH 14.5 % (9.0-15.0); WHITE BLOOD COUNT (AUTO) 17.5 K/uL (4.8-10.8)
[2020-11-24 07:39] LABS: ALANINE AMINOTRANSFERASE 95 U/L (12-78); ALBUMIN 1.9 g/dL (3.4-4.8); ANION GAP 8 (5-15); ASPARTATE AMINOTRANSFERASE 26 U/L (10-37); BILIRUBIN,DIRECT 0.3 mg/dL (0.0-0.3); CALCIUM 8.6 mg/dL (8.4-11.0); CHLORIDE 109 mmol/L (98-107); CREATININE 1.17 mg/dL (0.55-1.30); GLUCOSE 102 mg/dL (70-99); POTASSIUM 3.9 mmol/L (3.5-5.1); SODIUM SERUM 149 mmol/L (136-145); TOTAL BILIRUBIN 0.6 mg/dL (0.0-1.0); UREA NITROGEN, BLOOD 40 mg/dL (8-21)
[2020-11-24] MEDS: D5/0.45 NS 1,000 ML IV SCH ×2 (08:30→22:30)
--- NOTE | 2020-11-24 09:35 | NUR ---
PHYSICAL THERAPY CO-SIGN The Physical Therapy Progress Notes documented by Patrol Commander have been reviewed. Reviewed/Co-Signed by: Galo Castillo Documentation Done by: AINSLEY NORMAN PTA Addendum: 11/24/20 at 0936 by Galo Castillo PT Amended: Links added.
[2020-11-24] MEDS: ASCORBIC ACID 500 MG TABLET PO SCH (10:02)
[2020-11-24] MEDS: PANTOPRAZOLE SODIUM 40 MG TAB PO SCH (10:03)
[2020-11-24] MEDS: CHOLECALCIFEROL (VITAMIN D3) 2,000 UNIT TABLET PO SCH (10:03)
[2020-11-24] MEDS: ENOXAPARIN SODIUM 60 MG/0.6 ML SYRINGE SUBCUT SCH (10:04)
[2020-11-24] MEDS: FUROSEMIDE 20 MG/2 ML VIAL IVP SCH ×2 (10:04→21:23)
--- NOTE | 2020-11-24 11:46 | NUR ---
Paged Dr. Fowler for Primary RN, for PICC or Midline orders, will follow up as needed.
[2020-11-24 12:00] VITALS: BP_SYST 152
[2020-11-24 13:04] LABS: INR 1.1 (0.80-1.20); PROTHROMBIN TIME 10.9 SECS (9.5-12.5)
[2020-11-24] MEDS: DEXAMETHASONE SOD PHOSPHATE 10 MG/ML VIAL IVP SCH (15:30)
[2020-11-24 16:00] VITALS: BP_SYST 138
[2020-11-24 20:00] VITALS: BP_SYST 135
[2020-11-24] MEDS: INSULIN GLARGINE 100 UNITS/ML 10 ML VIAL SUBCUT SCH (21:23)
[2020-11-25] VITALS: BP_SYST 137
[2020-11-25] MEDS: METOCLOPRAMIDE HCL 10 MG/2 ML VIAL IVP SCH ×4 (01:00→17:06)
[2020-11-25 08:00] VITALS: BP_SYST 136
[2020-11-25] MEDS: ASCORBIC ACID 500 MG TABLET PO SCH (10:25)
[2020-11-25] MEDS: PANTOPRAZOLE SODIUM 40 MG TAB PO SCH (10:26)
[2020-11-25] MEDS: CHOLECALCIFEROL (VITAMIN D3) 2,000 UNIT TABLET PO SCH (10:26)
[2020-11-25 10:27] LABS: ANION GAP 10 (5-15); CHLORIDE 113 mmol/L (98-107); GLUCOSE 115 mg/dL (70-99); POTASSIUM 3.9 mmol/L (3.5-5.1); SODIUM SERUM 153 mmol/L (136-145)
[2020-11-25] MEDS: ENOXAPARIN SODIUM 60 MG/0.6 ML SYRINGE SUBCUT SCH (10:27)
[2020-11-25 10:28] LABS: CREATININE 1.44 mg/dL (0.55-1.30); UREA NITROGEN, BLOOD 59 mg/dL (8-21)
[2020-11-25] MEDS: FUROSEMIDE 20 MG/2 ML VIAL IVP SCH ×2 (10:28→21:49)
[2020-11-25 10:52] LABS: BASOPHILS # (AUTO) 0.1 K/uL (0.0-0.2); BASOPHILS % (AUTO) 0.2 % (0.0-2.0); HEMATOCRIT 35.4 % (36-54); HEMOGLOBIN 11.4 g/dL (14.0-18.0); LYMPHOCYTES # (AUTO) 0.3 K/uL (1.0-5.5); LYMPHOCYTES % (AUTO) 1.1 % (20.5-51.5); MEAN CORPUSCULAR HEMOGLOBIN 29 pg (27-31); MEAN CORPUSCULAR HGB CONC 32 % (32-36); MEAN CORPUSCULAR VOLUME 91 fL (79.0-98.0); MONOCYTES # (AUTO) 1.1 K/uL (0.0-1.0); MONOCYTES % (AUTO) 4.4 % (1.7-9.3); NEUTROPHILS % (AUTO) 94.3 % (40.0-70.0); PLATELET COUNT (AUTO) 334 K/uL (130-430); RED BLOOD CELL COUNT(AUTO) 3.89 MIL/uL (4.2-6.2); RED CELL DISTRIBUTION WIDTH 14.6 % (9.0-15.0)
[2020-11-25 11:20] LABS: WHITE BLOOD COUNT (AUTO) 24.4 K/uL (4.8-10.8)
[2020-11-25 12:00] VITALS: BP_SYST 131
[2020-11-25] MEDS: D5/0.45 NS 1,000 ML IV SCH (13:06)
[2020-11-25 16:00] VITALS: BP_SYST 128
[2020-11-25] MEDS: DEXAMETHASONE SOD PHOSPHATE 10 MG/ML VIAL IVP SCH (17:06)
[2020-11-25] MEDS ORDERED: INSULIN REGULAR, HUMAN 100 UNITS/ML, 10 ML VIAL (humuLIN R) SUBCUT PRN (17:15)
[2020-11-25] MEDS ORDERED: DEXTROSE 50% JECT 50 ML DISP.SYRIN IVP PRN (17:15)
[2020-11-25] MEDS ORDERED: *PPN PER PHARMACY XX PRN (17:15)
[2020-11-25 20:00] VITALS: BP_SYST 143
[2020-11-25] MEDS: INSULIN GLARGINE 100 UNITS/ML 10 ML VIAL SUBCUT SCH (21:49)
[2020-11-26] VITALS: BP_SYST 131
[2020-11-26] MEDS: METOCLOPRAMIDE HCL 10 MG/2 ML VIAL IVP SCH ×4 (00:09→17:39)
[2020-11-26] MEDS: D5/0.45 NS 1,000 ML IV SCH ×3 (03:21→21:20)
[2020-11-26 07:52] LABS: BASOPHILS % (AUTO) 0.2 % (0.0-2.0); HEMATOCRIT 33.1 % (36-54); HEMOGLOBIN 10.8 g/dL (14.0-18.0); LYMPHOCYTES # (AUTO) 0.4 K/uL (1.0-5.5); LYMPHOCYTES % (AUTO) 1.9 % (20.5-51.5); MEAN CORPUSCULAR HEMOGLOBIN 29 pg (27-31); MEAN CORPUSCULAR HGB CONC 33 % (32-36); MEAN CORPUSCULAR VOLUME 90 fL (79.0-98.0); MONOCYTES # (AUTO) 0.7 K/uL (0.0-1.0); MONOCYTES % (AUTO) 3.4 % (1.7-9.3); NEUTROPHILS # (AUTO) 19.1 K/uL (1.8-7.7); NEUTROPHILS % (AUTO) 94.5 % (40.0-70.0); PLATELET COUNT (AUTO) 339 K/uL (130-430); RED BLOOD CELL COUNT(AUTO) 3.68 MIL/uL (4.2-6.2); RED CELL DISTRIBUTION WIDTH 14.6 % (9.0-15.0); WHITE BLOOD COUNT (AUTO) 20.2 K/uL (4.8-10.8)
[2020-11-26 08:00] VITALS: BP_SYST 147
[2020-11-26 08:48] LABS: ALANINE AMINOTRANSFERASE 61 U/L (12-78); ANION GAP 11 (5-15); ASPARTATE AMINOTRANSFERASE 16 U/L (10-37); CALCIUM 8.8 mg/dL (8.4-11.0); CHLORIDE 115 mmol/L (98-107); CREATININE 1.66 mg/dL (0.55-1.30); GLUCOSE 116 mg/dL (70-99); PHOSPHORUS 3.7 mg/dL (2.7-4.5); POTASSIUM 3.5 mmol/L (3.5-5.1); SODIUM SERUM 156 mmol/L (136-145); UREA NITROGEN, BLOOD 65 mg/dL (8-21)
[2020-11-26] MEDS: PANTOPRAZOLE SODIUM 40 MG TAB PO SCH (09:00)
[2020-11-26] MEDS: ASCORBIC ACID 500 MG TABLET PO SCH (09:00)
[2020-11-26] MEDS: CHOLECALCIFEROL (VITAMIN D3) 2,000 UNIT TABLET PO SCH (09:00)
[2020-11-26] MEDS: ENOXAPARIN SODIUM 60 MG/0.6 ML SYRINGE SUBCUT SCH (10:18)
[2020-11-26] MEDS: FUROSEMIDE 20 MG/2 ML VIAL IVP SCH ×2 (10:19→21:20)
--- NOTE | 2020-11-26 11:05 | NUR ---
Pt. removed from BiPAP to offload, placed on NRB @ 15Lpm, pt. tolerating well, will continue to monitor. VU Khan aware.
[2020-11-26 12:19] VITALS: BP_SYST 128
[2020-11-26 13:14] LABS: TRIGLYCERIDES 80 mg/dL (30-150)
[2020-11-26] MEDS: DEXAMETHASONE SOD PHOSPHATE 10 MG/ML VIAL IVP SCH (15:49)
[2020-11-26 16:00] VITALS: BP_SYST 126
[2020-11-26] MEDS: PIPERACILLIN/TAZO 2.25G/DEX-IS 50 ML IV SCH (17:39)
--- NOTE | 2020-11-26 18:29 | NUR ---
Nutrition F/U RD reviewed pt's current EMR record including diet Hx, physician notes, nursing notes, pertinent labs/meds/procedures, care trends, and care activity. Admission Dx: Respiratory failure PMH: HTN, DJD, DLD, COPD, BPH, DM per physician notes SARS-CoV-2 Ag (Rapid) Positive 11/11/20 Current Diet Order/Nutrition Support: Mechanical soft finely chopped diet Subjective Info: Bedside visit deferred d/t surge charting and PPE conservation efforts. Per EMR review, no recent documentation of PO intakes -- started on TPN support. Pt has been on bipap since extubation. Pt is not meeting nutritional needs. Pertinent Medications: lasix, decadron, lasix Pertinent Labs: WBC 20.2 H, BG 116 H, POC BG 137, CRE 1.66 H, ALB 2 L Weight (Pounds) 110#/50 kg -- stable, no apparent changes 11/13/20 Skin Integrity Comment: Emiliano scale: 15; no skin issues noted Estimated Energy Expenditure (kcals/day) 2246-0102 kcal/day (30-35 kcal/lg IBW for sepsis, acute state) Estimated Protein Required (g/day) 89-118 g/day (1.5-2g/kg based on IBW for sepsis, COVID) Estimated Fluid Required (l/day) 1.8-2 L/day (1 ml/kcal/day based on CBW for maintenance) Problem/Etiology/Signs/Symptoms Increased nutrient needs r/t increased metabolic demands AEB pt w/ sepsis and COVID-19. *ongoing Inadequate nutritional intakes related to recent extubation as evidenced by pending ST swallow eval and NPO observance. *improving w/ TPN support Expected Outcomes/Goals Monitor appetite and intake w/ goal of pt meeting at least 75% of estimated nutritional needs, labs trending WNL, normal GI function, and skin integrity/wt maintenance Dietitian Recommendations * Recommend continuing mechanical soft, finely chopped, CCHO diet w/ Glucerna BID * Encourage increase PO intakes * Recommend TPN D50%, AA10% at 50 ml/hr (goal rate), IL20% at 10 ml/hr daily via central line Provides: 1740 kcal/day, 60 gm protein/day, and GIR: 4.2 gm CHO/kg/min Meets: 98% of lower end of estimated caloric needs and 67% of lower end of estimated protein needs Follow Up High Risk: F/U in 2-3 days
--- NOTE | 2020-11-26 18:37 | NUR ---
Dietitian Recommendations * Recommend continuing mechanical soft, finely chopped, CCHO diet w/ Glucerna BID * Encourage increase PO intakes * Recommend TPN D50%, AA10% at 50 ml/hr (goal rate), IL20% at 10 ml/hr daily via central line Provides: 1740 kcal/day, 60 gm protein/day, and GIR: 4.2 gm CHO/kg/min Meets: 98% of lower end of estimated caloric needs and 67% of lower end of estimated protein needs LP, RD Please refer to Nutrition F/U for details.
[2020-11-26 20:00] VITALS: BP_SYST 141
[2020-11-26] MEDS ORDERED: POTASSIUM CHLORIDE IV SCH ×7 (21:00)
[2020-11-26] MEDS ORDERED: TPN CENTRAL IV SCH ×7 (21:00)
[2020-11-26] MEDS ORDERED: TRACE ELEMENTS IV SCH ×7 (21:00)
[2020-11-26] MEDS ORDERED: [UNRECOGNIZED DRUG - OTHER] IV SCH ×7 (21:00)
[2020-11-26] MEDS ORDERED: K PHOS IV SCH ×7 (21:00)
[2020-11-26] MEDS: INSULIN GLARGINE 100 UNITS/ML 10 ML VIAL SUBCUT SCH (21:00)
[2020-11-26] MEDS: FAT EMULSIONS 250 ML IV SCH (21:20)
[2020-11-27] VITALS: BP_SYST 134
[2020-11-27] MEDS: METOCLOPRAMIDE HCL 10 MG/2 ML VIAL IVP SCH ×4 (05:30→17:35)
[2020-11-27] MEDS: PIPERACILLIN/TAZO 2.25G/DEX-IS 50 ML IV SCH ×4 (05:30→17:35)
[2020-11-27] MEDS: INSULIN LISPRO SLIDING SCALE 100 UNITS/ML VIAL (humaLOG) SUBCUT PRN ×3 (06:20→17:35)
[2020-11-27 06:35] LABS: BASOPHILS % (AUTO) 0.1 % (0.0-2.0); HEMATOCRIT 31.9 % (36-54); HEMOGLOBIN 10.4 g/dL (14.0-18.0); LYMPHOCYTES # (AUTO) 0.3 K/uL (1.0-5.5); LYMPHOCYTES % (AUTO) 1.8 % (20.5-51.5); MEAN CORPUSCULAR HEMOGLOBIN 30 pg (27-31); MEAN CORPUSCULAR HGB CONC 33 % (32-36); MEAN CORPUSCULAR VOLUME 90 fL (79.0-98.0); MONOCYTES # (AUTO) 0.6 K/uL (0.0-1.0); MONOCYTES % (AUTO) 3.4 % (1.7-9.3); NEUTROPHILS # (AUTO) 17.5 K/uL (1.8-7.7); NEUTROPHILS % (AUTO) 94.7 % (40.0-70.0); PLATELET COUNT (AUTO) 290 K/uL (130-430); RED BLOOD CELL COUNT(AUTO) 3.53 MIL/uL (4.2-6.2); RED CELL DISTRIBUTION WIDTH 14.8 % (9.0-15.0); WHITE BLOOD COUNT (AUTO) 18.4 K/uL (4.8-10.8)
[2020-11-27 07:38] LABS: ALBUMIN 1.9 g/dL (3.4-4.8); ANION GAP 11 (5-15); CALCIUM 8.4 mg/dL (8.4-11.0); CHLORIDE 113 mmol/L (98-107); CREATININE 1.88 mg/dL (0.55-1.30); GLUCOSE 196 mg/dL (70-99); PHOSPHORUS 3.2 mg/dL (2.7-4.5); POTASSIUM 3.2 mmol/L (3.5-5.1); SODIUM SERUM 154 mmol/L (136-145); UREA NITROGEN, BLOOD 66 mg/dL (8-21)
[2020-11-27] MEDS: ASCORBIC ACID 500 MG TABLET PO SCH (09:00)
[2020-11-27] MEDS: PANTOPRAZOLE SODIUM 40 MG TAB PO SCH (09:00)
[2020-11-27] MEDS: CHOLECALCIFEROL (VITAMIN D3) 2,000 UNIT TABLET PO SCH (09:00)
[2020-11-27 09:35] VITALS: BP_SYST 118
[2020-11-27] MEDS: FUROSEMIDE 20 MG/2 ML VIAL IVP SCH ×2 (09:35→21:25)
[2020-11-27] MEDS: ENOXAPARIN SODIUM 60 MG/0.6 ML SYRINGE SUBCUT SCH (09:35)
--- NOTE | 2020-11-27 09:40 | NUR ---
Bipap patient found to be on 15L via non rebreather, patient's work of breathing was increased and oxygen saturation was 84%, called RT, and patient was placed on Bipap 100% at this time, after placing on Bipap patient's oxygen saturation was 95%-99%, continuing to monitor the patient's condition.
[2020-11-27 12:00] VITALS: BP_SYST 141
--- NOTE | 2020-11-27 13:41 | NUR ---
Spoke with patient's daughter Hilary - regarding plan of care and answered her questions. Hilary [phone]
[2020-11-27] MEDS: DEXAMETHASONE SOD PHOSPHATE 10 MG/ML VIAL IVP SCH (14:55)
[2020-11-27 15:41] VITALS: BP_SYST 117
--- NOTE | 2020-11-27 15:46 | NUR ---
Spoke with Dr. Bello/High Rodas regarding patient condition and increased heart rate in the 120's as well as increased respiratory rate and that the patient's oxygen saturation is at 93% on Bipap Fio2 100% at this time, received orders for Ativan 0.5mg IV Q8 PRN and call independent crop consultant if patient's condition worsens, will follow up.
[2020-11-27] MEDS ORDERED: LORazepam 2 MG/ML VIAL IVP PRN (16:00)
--- NOTE | 2020-11-27 17:35 | NUR ---
RN rounds patient is more calm now, resting with his eyes closed, Bipap mask adjusted by RT, patient's heart rate is now 106 and oxygen saturation 98% on Bipap Fio2 100% at this time.
[2020-11-27] MEDS ORDERED: POTASSIUM CHLORIDE 20 MEQ in NS 250 ML IV ONE (19:30)
[2020-11-27] MEDS ORDERED: KCL 20 mEq in 100 mL (PREMIX) 100 ML IV ONE (19:30)
[2020-11-27 20:00] VITALS: BP_SYST 126
[2020-11-27] MEDS ORDERED: POTASSIUM CHLORIDE IV SCH ×7 (21:00)
[2020-11-27] MEDS ORDERED: TPN CENTRAL IV SCH ×7 (21:00)
[2020-11-27] MEDS ORDERED: K PHOS IV SCH ×7 (21:00)
[2020-11-27] MEDS ORDERED: [UNRECOGNIZED DRUG - OTHER] IV SCH ×7 (21:00)
[2020-11-27] MEDS ORDERED: TRACE ELEMENTS IV SCH ×7 (21:00)
[2020-11-27] MEDS: INSULIN GLARGINE 100 UNITS/ML 10 ML VIAL SUBCUT SCH (21:25)
[2020-11-27] MEDS: FAT EMULSIONS 250 ML IV SCH (21:25)
[2020-11-27] MEDS: D5/0.45 NS 1,000 ML IV SCH (21:25)
[2020-11-28] VITALS (14 sets, daily range): BP systolic 55–141
[2020-11-28] MEDS ORDERED: KCL 20 mEq in 100 mL (PREMIX) 100 ML IV ONE (00:07)
[2020-11-28] MEDS: PIPERACILLIN/TAZO 2.25G/DEX-IS 50 ML IV SCH ×4 (00:17→16:52)
[2020-11-28] MEDS: METOCLOPRAMIDE HCL 10 MG/2 ML VIAL IVP SCH ×4 (00:17→16:52)
[2020-11-28] MEDS: INSULIN LISPRO SLIDING SCALE 100 UNITS/ML VIAL (humaLOG) SUBCUT PRN (06:22)
--- NOTE | 2020-11-28 07:36 | NUR ---
O2 UPON ENTERING PT ROOM O2 NOTED TO BE 84% ON BIPAP WITH FIO2 OF 100%. NOTIFIED RT WHO STATED THERE IS NOTHING ELSE THEY CAN DO TO NOTIFY THE MD. NOTIFIED US TO PAGE NURSE SANE. NURSE SANE IN BUILDING STATED TO GET HIM A PHONE NUMBER FOR THE FAMILY AND HE WILL CONTACT THEM.
[2020-11-28 07:59] LABS: BASOPHILS % (AUTO) 0.2 % (0.0-2.0); HEMATOCRIT 34.6 % (36-54); HEMOGLOBIN 11.1 g/dL (14.0-18.0); LYMPHOCYTES # (AUTO) 0.4 K/uL (1.0-5.5); LYMPHOCYTES % (AUTO) 1.5 % (20.5-51.5); MEAN CORPUSCULAR HEMOGLOBIN 29 pg (27-31); MEAN CORPUSCULAR HGB CONC 32 % (32-36); MEAN CORPUSCULAR VOLUME 91 fL (79.0-98.0); MONOCYTES # (AUTO) 0.8 K/uL (0.0-1.0); MONOCYTES % (AUTO) 3.2 % (1.7-9.3); NEUTROPHILS # (AUTO) 24.8 K/uL (1.8-7.7); PLATELET COUNT (AUTO) 245 K/uL (130-430); RED BLOOD CELL COUNT(AUTO) 3.81 MIL/uL (4.2-6.2); RED CELL DISTRIBUTION WIDTH 15.4 % (9.0-15.0); WHITE BLOOD COUNT (AUTO) 26.1 K/uL (4.8-10.8)
--- NOTE | 2020-11-28 08:10 | NUR ---
Patient seen and examined by the Vp Publisher Development Dr. Block ,tachypneic SOB on BIPAP , premedicate with sedation then intubated by the spd tech, connected to mechanical ventilator. endorsed to ICU.
[2020-11-28 08:22] LABS: ALBUMIN 1.7 g/dL (3.4-4.8); ANION GAP 17 (5-15); CALCIUM 8.2 mg/dL (8.4-11.0); CHLORIDE 114 mmol/L (98-107); CREATININE 2.61 mg/dL (0.55-1.30); GLUCOSE 217 mg/dL (70-99); PHOSPHORUS 4.7 mg/dL (2.7-4.5); POTASSIUM 3.5 mmol/L (3.5-5.1); SODIUM SERUM 155 mmol/L (136-145); UREA NITROGEN, BLOOD 79 mg/dL (8-21)
--- NOTE | 2020-11-28 08:25 | NUR ---
TOPPER PRESS OPERATOR AUTOMATIC NOTE RT KAYLIN CONDE, AND OFELIA PRESENTED. DR. WHEELER INTUBATED W/ ETT 7.5 25CM@LL @0825. VENTILATED W/ BVM ETCO2 DETECTOR COLOR CHANGE NOTED. BILATERAL BREATH SOUNDS HEARD. PT PLACED ON VENT W/ SETTINGS AC18, 500, +5, AND 100%FIO2 @0830.
--- NOTE | 2020-11-28 09:10 | NUR ---
PAGED PAGED DR.SINGHUC [facility] AT [phone] SPOKE WITH TAMANNA.
[2020-11-28] MEDS ORDERED: ROCURONIUM BROMIDE 10 MG/ML (ZEMURON) IV ONE ×2 (09:15→17:24)
[2020-11-28] MEDS ORDERED: ETOMIDATE 20 MG/ 10 ML VIAL (AMIDATE) IVP ONE ×2 (09:15→17:24)
--- NOTE | 2020-11-28 09:21 | NUR ---
CONSULTATION PAGED REASON FOR CONSULTATION:SVT WAS CONSULT CALLED?Y PERSON WHO WAS NOTIFIED:JESSICA CONSULTING PHYSICIAN:NYASIA RAMÍREZ STITCH SEPARATOR SPECIALTY:CARDIO STITCH SEPARATOR PHONE NUMBER:[phone] REQUESTING PHYSICIAN:[facility]
[2020-11-28] MEDS ORDERED: NOREPINEPHRINE BITARTRATE 4 MG in NS 246 ML IV PRN (09:30)
--- NOTE | 2020-11-28 09:30 | NUR ---
ICU Opening Note Received bedside report from endorsing RN for continuation of care. Received patient intubated and resting in bed, in distress. paged for orders. Fall and safety precautions in place.
[2020-11-28] MEDS ORDERED: PANTOPRAZOLE SODIUM 40 MG/VIAL (PROTONIX) IVP ONE (10:30)
[2020-11-28] MEDS: NACL 0.9% 1,000 ML IV ONE ×2 (10:54→10:55)
[2020-11-28 11:34] LABS: NEUTROPHILS % (AUTO) 95.1 % (40.0-70.0)
--- NOTE | 2020-11-28 11:55 | NUR ---
Spoke with Dr. Block on the phone regarding patient status, new orders received.
[2020-11-28] MEDS: ENOXAPARIN SODIUM 60 MG/0.6 ML SYRINGE SUBCUT SCH (11:59)
[2020-11-28] MEDS: ASCORBIC ACID 500 MG TABLET PO SCH (12:00)
[2020-11-28] MEDS: CHOLECALCIFEROL (VITAMIN D3) 2,000 UNIT TABLET PO SCH (12:00)
[2020-11-28] MEDS: FUROSEMIDE 20 MG/2 ML VIAL IVP SCH ×2 (12:01→21:00)
[2020-11-28] MEDS: PROPOFOL DRIP 100 ML IV PRN (12:21)
[2020-11-28] MEDS ORDERED: NOREPINEPHRINE 4 MG/4 ML VIAL IV ONE ×3 (14:11→20:45)
--- NOTE | 2020-11-28 14:46 | NUR ---
Dietitian Note Nutrition Consult received for tube feeding recommendation 11/28/[address] reviewed pt's current EMR including diet Hx, physician notes, nursing notes, pertinent labs/meds/procedures, care trends and care activity. RD called RN Esau to ask about pt, RN is busy w/ other pt at this time. RD noted elevated BG and renal labs. (Na 155H, Mg 2.6h, P 4.7H, BUN 79H, Cre 2.61H) Dietitian Recommendation: *Recommend: Nepro at 20ml/hr via NGT. *Water flush per . RD to follow per nutrition care standards. JUSTYN, RD
--- NOTE | 2020-11-28 15:09 | NUR ---
Spoke with Dr. Chris regarding patient status, new orders received.
[2020-11-28] MEDS ORDERED: NS 250 ML IV ONE (15:15)
[2020-11-28] MEDS: NACL 0.9% 1,000 ML IV SCH (15:54)
[2020-11-28] MEDS: DEXAMETHASONE SOD PHOSPHATE 10 MG/ML VIAL IVP SCH (16:52)
[2020-11-28] MEDS ORDERED: NACL 0.9% 1,000 ML IV ONE (17:00)
--- NOTE | 2020-11-28 17:08 | NUR ---
P.T. NOTES HOLD P.T. TX, Pt WAS TRANSFERRED TO ICU, ETT; AWAIT P.T. RE EVAL ORDER POST EXTUBATION WHEN APPROPRIATE.
[2020-11-28] MEDS ORDERED: PHENYLEPHRINE HCL 10 MG/ML VIAL (NEOSYNEPHRINE) ONE (17:19)
[2020-11-28] MEDS: DEXTROSE 50% JECT 50 ML DISP.SYRIN IVP PRN (18:04)
[2020-11-28] MEDS: NOREPINEPHRINE BITARTRATE 8 MG in NS 242 ML IV PRN (18:05)
[2020-11-28] MEDS: PHENYLEPHRINE HCL 100 MG in NS 240 ML IV PRN (18:16)
--- NOTE | 2020-11-28 18:40 | NUR ---
Spoke with Dr. Block regarding patient's heart rate and breathing, new orders received.
[2020-11-28] MEDS ORDERED: LORazepam 2 MG/ML VIAL IVP PRN (18:45)
[2020-11-28] MEDS ORDERED: NALOXONE HCL 0.4 MG/ML AMP (NARCAN) IVP PRN (18:45)
[2020-11-28] MEDS ORDERED: MORPHINE I.V. DRIP 100 ML IV ONE (18:59)
[2020-11-28] MEDS: MORPHINE I.V. DRIP 100 ML IV PRN ×2 (19:11→22:55)
--- NOTE | 2020-11-28 19:37 | NUR ---
Closing Note Endorsed bedside report to oncoming RN using SBAR approach for continuation of care.
[2020-11-28] MEDS ORDERED: TPN CENTRAL IV SCH ×9 (21:00)
[2020-11-28] MEDS: FAT EMULSIONS 250 ML IV SCH (21:00)
[2020-11-28] MEDS ORDERED: POTASSIUM CHLORIDE IV SCH ×9 (21:00)
[2020-11-28] MEDS ORDERED: [UNRECOGNIZED DRUG - OTHER] IV SCH ×9 (21:00)
[2020-11-28] MEDS ORDERED: POTASSIUM ACETATE IV SCH ×9 (21:00)
[2020-11-28] MEDS: INSULIN GLARGINE 100 UNITS/ML 10 ML VIAL SUBCUT SCH (21:00)
--- NOTE | 2020-11-28 21:20 | NUR ---
RT NOTES 2119 PT MOVED FROM 132A TO ICU 4, VIA TRANSPORT MEI VENT. SXN'D PT ORAL/ETT PRIOR MOVING. NO DISTRESS NOTED. ASSISTED NEUROLOGY DIRECTOR LUBNA/ VU LINDQUIST ON MOVING PT. WILL CONTINUE TO MONITOR PT.
[2020-11-29] VITALS (30 sets, daily range): BP systolic 97–152
[2020-11-29] MEDS: PIPERACILLIN/TAZO 2.25G/DEX-IS 50 ML IV SCH ×4 (00:33→17:03)
--- NOTE | 2020-11-29 04:00 | NUR ---
rt notes 0400 titrated fio2 to 95%, pt sat 96%. no distress noted.
[2020-11-29] MEDS: NACL 0.9% 1,000 ML IV SCH ×2 (04:35→08:19)
[2020-11-29] MEDS: METOCLOPRAMIDE HCL 10 MG/2 ML VIAL IVP SCH ×4 (06:00→17:03)
[2020-11-29 07:14] LABS: ANION GAP 13 (5-15); CHLORIDE 114 mmol/L (98-107); CREATININE 3.25 mg/dL (0.55-1.30); SODIUM SERUM 150 mmol/L (136-145); UREA NITROGEN, BLOOD 81 mg/dL (8-21)
[2020-11-29 07:47] LABS: GLUCOSE 413 mg/dL (70-99)
[2020-11-29] MEDS: INSULIN LISPRO SLIDING SCALE 100 UNITS/ML VIAL (humaLOG) SUBCUT PRN ×3 (07:54→17:03)
--- NOTE | 2020-11-29 08:00 | NUR ---
AM ASSESSMENT. PT RECEIVING DIPRIVAN DRIP, MORPHINE DRIP, MECHANICALLY INTUBATED, AFEBRILE, ORAL CARE DONE, LIPS AND INSIDE MOUTH VERY DRY, AND USED LIP MOISTURIZER. REPOSITIONED IN BED, HEAD OF BED ELEVATED, PILLOW PLACED TO HIS BACK AND LEGS. MUNOZ CATHETER DRAINING GIGI URINE. IVF NS AT 75 ML PER HR.
[2020-11-29 08:05] LABS: PLATELET COUNT (AUTO) 251 K/uL (130-430); RED BLOOD CELL COUNT(AUTO) 2.98 MIL/uL (4.2-6.2)
[2020-11-29] MEDS: NOREPINEPHRINE BITARTRATE 8 MG in NS 242 ML IV PRN ×3 (08:21→19:24)
[2020-11-29] MEDS ORDERED: NS 500 ML IV ONE (08:30)
[2020-11-29 09:18] LABS: HEMOGLOBIN 10.3 g/dL (14.0-18.0); WHITE BLOOD COUNT (AUTO) 30.2 K/uL (4.8-10.8)
[2020-11-29 09:19] LABS: MEAN CORPUSCULAR HEMOGLOBIN 30 pg (27-31); MEAN CORPUSCULAR HGB CONC 31 % (32-36); MEAN CORPUSCULAR VOLUME 95 fL (79.0-98.0)
[2020-11-29 09:20] LABS: RED CELL DISTRIBUTION WIDTH 16.2 % (9.0-15.0)
[2020-11-29] MEDS: PANTOPRAZOLE SODIUM 40 MG/VIAL (PROTONIX) IVP SCH (09:37)
[2020-11-29] MEDS: CHOLECALCIFEROL (VITAMIN D3) 2,000 UNIT TABLET PO SCH (09:38)
[2020-11-29] MEDS: ASCORBIC ACID 500 MG TABLET PO SCH (09:38)
[2020-11-29 10:11] LABS: C-REACTIVE PROTEIN QUANT 16.8 mg/dL (0-0.5)
[2020-11-29] MEDS: ENOXAPARIN SODIUM 60 MG/0.6 ML SYRINGE SUBCUT SCH (10:16)
[2020-11-29 10:54] LABS: ERYTHROCYTE SEDIMENTATION RATE 38 MM/HR (0-15)
--- NOTE | 2020-11-29 12:00 | NUR ---
DIET. FEEDING VIA OGT STARTED, TURNED AND REPOSITIONED PT IN BED, HEAD OF BED UP TO PREVENT ASPIRATION.
[2020-11-29 12:03] LABS: BAND % (MANUAL) 19 % (0-6)
[2020-11-29 12:04] LABS: ATYPICAL LYMPHOCYTES % 1 % (0-0); BASOPHILS % (MANUAL) 0 % (0-2); EOSINOPHILS % (MANUAL) 1 % (0-7); LYMPHOCYTES % (MANUAL) 2 % (20-46); METAMYELOCYTES % 1 % (0-0); MONOCYTES % (MANUAL) 1 % (0-11)
[2020-11-29] MEDS: MORPHINE I.V. DRIP 100 ML IV PRN ×2 (12:59→22:05)
[2020-11-29] MEDS: PROPOFOL DRIP 100 ML IV PRN ×2 (13:02→19:23)
--- NOTE | 2020-11-29 13:53 | NUR ---
Spoke w/ patient's daughter-given update on patient's condition and verified cell phone and rn hospital are at patient's bed side
[2020-11-29] MEDS: DEXAMETHASONE SOD PHOSPHATE 10 MG/ML VIAL IVP SCH (15:53)
[2020-11-29] MEDS: INSULIN GLARGINE 100 UNITS/ML 10 ML VIAL SUBCUT SCH (22:06)
[2020-11-30] VITALS (27 sets, daily range): BP systolic 80–136
[2020-11-30] MEDS ORDERED: NOREPINEPHRINE 4 MG/4 ML VIAL IV ONE ×2 (00:30→00:46)
[2020-11-30] MEDS: METOCLOPRAMIDE HCL 10 MG/2 ML VIAL IVP SCH ×5 (01:23→23:54)
[2020-11-30] MEDS: PIPERACILLIN/TAZO 2.25G/DEX-IS 50 ML IV SCH ×5 (01:23→23:54)
[2020-11-30] MEDS: NACL 0.9% 1,000 ML IV SCH (01:55)
[2020-11-30] MEDS: DEXTROSE 50% JECT 50 ML DISP.SYRIN IVP PRN (06:22)
[2020-11-30 06:45] LABS: BASOPHILS # (AUTO) 0.3 K/uL (0.0-0.2); BASOPHILS % (AUTO) 0.9 % (0.0-2.0); EOSINOPHILS # (AUTO) 0.1 K/uL (0.0-0.4); EOSINOPHILS % (AUTO) 0.5 % (0.0-4.0); HEMATOCRIT 30.6 % (36-54); HEMOGLOBIN 9.8 g/dL (14.0-18.0); LYMPHOCYTES # (AUTO) 0.4 K/uL (1.0-5.5); LYMPHOCYTES % (AUTO) 1.5 % (20.5-51.5); MEAN CORPUSCULAR HEMOGLOBIN 30 pg (27-31); MEAN CORPUSCULAR HGB CONC 32 % (32-36); MONOCYTES # (AUTO) 0.6 K/uL (0.0-1.0); MONOCYTES % (AUTO) 2.1 % (1.7-9.3); NEUTROPHILS # (AUTO) 28.1 K/uL (1.8-7.7); PLATELET COUNT (AUTO) 132 K/uL (130-430); RED BLOOD CELL COUNT(AUTO) 3.28 MIL/uL (4.2-6.2); RED CELL DISTRIBUTION WIDTH 15.5 % (9.0-15.0); WHITE BLOOD COUNT (AUTO) 29.6 K/uL (4.8-10.8)
[2020-11-30 06:59] LABS: ANION GAP 13 (5-15); CHLORIDE 117 mmol/L (98-107); CREATININE 3.25 mg/dL (0.55-1.30); GLUCOSE 76 mg/dL (70-99); POTASSIUM 3.9 mmol/L (3.5-5.1); SODIUM SERUM 150 mmol/L (136-145); UREA NITROGEN, BLOOD 78 mg/dL (8-21)
[2020-11-30 07:15] LABS: CALCIUM 6.9 mg/dL (8.4-11.0)
--- NOTE | 2020-11-30 07:20 | NUR ---
Opening Notes Pt received from night RN using SBAR
[2020-11-30] MEDS: MORPHINE I.V. DRIP 100 ML IV PRN (08:21)
[2020-11-30] MEDS: NOREPINEPHRINE BITARTRATE 8 MG in NS 242 ML IV PRN (08:25)
[2020-11-30 08:43] LABS: MEAN CORPUSCULAR VOLUME 93 fL (79.0-98.0)
[2020-11-30 09:06] LABS: C-REACTIVE PROTEIN QUANT 18.5 mg/dL (0-0.5)
[2020-11-30] MEDS: CHOLECALCIFEROL (VITAMIN D3) 2,000 UNIT TABLET PO SCH (09:07)
[2020-11-30] MEDS: ASCORBIC ACID 500 MG TABLET PO SCH (09:07)
[2020-11-30] MEDS: ENOXAPARIN SODIUM 60 MG/0.6 ML SYRINGE SUBCUT SCH (09:08)
[2020-11-30] MEDS: PHENYLEPHRINE HCL 100 MG in NS 240 ML IV PRN (09:09)
[2020-11-30] MEDS: PROPOFOL DRIP 100 ML IV PRN (09:11)
[2020-11-30] MEDS: PANTOPRAZOLE SODIUM 40 MG/VIAL (PROTONIX) IVP SCH (09:13)
[2020-11-30] MEDS ORDERED: PANTOPRAZOLE SODIUM 40 MG/VIAL (PROTONIX) ONE (09:14)
[2020-11-30 09:18] LABS: ERYTHROCYTE SEDIMENTATION RATE 55 MM/HR (0-15)
[2020-11-30] MEDS ORDERED: SODIUM BICARBONATE 8.4% JECT 50 MEQ/50 ML SYRINGE ONE (11:38)
[2020-11-30] MEDS: INSULIN LISPRO SLIDING SCALE 100 UNITS/ML VIAL (humaLOG) SUBCUT PRN (11:45)
[2020-11-30] MEDS ORDERED: SODIUM BICARBONATE 8.4% JECT 50 MEQ/50 ML SYRINGE IVP ONE ×2 (11:45)
[2020-11-30] MEDS ORDERED: SODIUM BICARBONATE 8.4% JECT 100 MEQ in 0.45% NACL 1,000 ML IV SCH (13:00)
[2020-11-30] MEDS: MICAFUNGIN SODIUM 50 MG in NS 100 ML IV SCH (13:00)
--- NOTE | 2020-11-30 13:13 | NUR ---
Nutrition F/U RD reviewed pt's current EMR record including diet Hx, physician notes, nursing notes, pertinent labs/meds/procedures, care trends, and care activity. Admission Dx: Respiratory failure PMH: HTN, DJD, DLD, COPD, BPH, DM per physician notes SARS-CoV-2 Ag (Rapid) Positive 11/11/20 Current Diet Order/Nutrition Support: Glucerna 1.2 at 150ml q4 hr Bolus, FWF 50ml q6 hr via NGT Subjective Info: Bedside visit deferred d/t surge charting and PPE conservation efforts. Per EMR review, pt is doing poorly on vent, blood pressure drops and pt remains unresponsive. MD's are recommending comfort care. Pertinent Medications: lasix, decadron, lasix Pertinent Labs: 11/30 Na 150H, K 3.9, BG 76, POC BG 154H, BUN 78H, Cre 3.25H Weight (Pounds) 110#/50 kg -- stable, no apparent changes 11/13/20 Skin Integrity Comment: Emiliano scale: 10; no skin issues noted Estimated Energy Expenditure (kcals/day) 4393-2553 kcal/day (30-35 kcal/lg IBW for sepsis, acute state) Estimated Protein Required (g/day) 89-118 g/day (1.5-2g/kg based on IBW for sepsis, COVID) Estimated Fluid Required (l/day) 1.8-2 L/day (1 ml/kcal/day based on CBW for maintenance) Problem/Etiology/Signs/Symptoms Increased nutrient needs r/t increased metabolic demands AEB pt w/ sepsis and COVID-19. *ongoing Inadequate nutritional intakes related to recent extubation as evidenced by pending ST swallow eval and NPO observance. *improving w/ TPN support Expected Outcomes/Goals Monitor EN support and intake w/ goal of pt meeting at least 75% of estimated nutritional needs, labs trending WNL, normal GI function, and skin integrity/wt maintenance Dietitian Recommendations *Resume EN support when able. *Recommend: continue Glucerna 1.2 at 150ml bolus q4hr, FWF 50ml q6hr via NGT Provides: 1080 Kcal, 54gm protein and 725ml free water daily. Follow Up High Risk: F/U in 2-3 days Addendum: 11/30/20 at [address] Dietitian Note PRABHJOT s/w pt's primary VU Reynolds who reported that pt has been receiving EN via bolus and tolerating well. Dietitian recommendation: continue current EN feeding. PRABHJOT ALEJANDRA
[2020-11-30] MEDS: NOREPINEPHRINE BITARTRATE 16 MG in NS 234 ML IV PRN ×2 (13:19→19:00)
--- NOTE | 2020-11-30 13:25 | NUR ---
Dietitian Recommendations *Resume EN support when able. *Recommend: continue Glucerna 1.2 at 150ml bolus q4hr, FWF 50ml q6hr via NGT Provides: 1080 Kcal, 54gm protein and 725ml free water daily. Please see Nutrition F/U INTERMEDIATE, RD
[2020-11-30] MEDS: DEXAMETHASONE SOD PHOSPHATE 10 MG/ML VIAL IVP SCH (15:03)
[2020-11-30] MEDS: INSULIN GLARGINE 100 UNITS/ML 10 ML VIAL SUBCUT SCH (21:00)
[2020-12-01] VITALS (18 sets, daily range): BP systolic 85–125
[2020-12-01] MEDS: PIPERACILLIN/TAZO 2.25G/DEX-IS 50 ML IV SCH ×3 (05:55→17:24)
[2020-12-01] MEDS: METOCLOPRAMIDE HCL 10 MG/2 ML VIAL IVP SCH ×3 (05:55→17:24)
[2020-12-01] MEDS: DEXTROSE 50% JECT 50 ML DISP.SYRIN IVP PRN ×2 (05:55→06:25)
[2020-12-01] MEDS ORDERED: DEXTROSE 50% JECT 50 ML DISP.SYRIN ONE (06:21)
[2020-12-01 07:00] LABS: HEMATOCRIT 26.5 % (36-54); MEAN CORPUSCULAR HEMOGLOBIN 29 pg (27-31); MEAN CORPUSCULAR HGB CONC 30 % (32-36); MEAN CORPUSCULAR VOLUME 96 fL (79.0-98.0); PLATELET COUNT (AUTO) 75 K/uL (130-430); RED BLOOD CELL COUNT(AUTO) 2.75 MIL/uL (4.2-6.2); RED CELL DISTRIBUTION WIDTH 17.1 % (9.0-15.0); WHITE BLOOD COUNT (AUTO) 22.6 K/uL (4.8-10.8)
--- NOTE | 2020-12-01 07:00 | NUR ---
Recv report fr [facility]ond[facility]ominational rn, per Nondenomin[facility] patients bs - labile, he gave patient d50 2x, current bs fr blood draw is 183, re checked with reinier gomez its 193, i will continue to monitor patient closely.
[2020-12-01 07:47] LABS: ERYTHROCYTE SEDIMENTATION RATE 44 MM/HR (0-15)
[2020-12-01 08:36] LABS: ANION GAP 22 (5-15); CHLORIDE 116 mmol/L (98-107); CREATININE 4.99 mg/dL (0.55-1.30); GLUCOSE 187 mg/dL (70-99); SODIUM SERUM 150 mmol/L (136-145); UREA NITROGEN, BLOOD 93 mg/dL (8-21)
[2020-12-01] MEDS ORDERED: D5NS 1,000 ML IV SCH (08:45)
[2020-12-01] MEDS: ASCORBIC ACID 500 MG TABLET PO SCH (09:00)
--- NOTE | 2020-12-01 09:00 | NUR ---
FIO2 Titrated to 80%
[2020-12-01 09:32] LABS: CALCIUM 6.7 mg/dL (8.4-11.0)
[2020-12-01 09:42] LABS: C-REACTIVE PROTEIN QUANT 8.1 mg/dL (0-0.5)
[2020-12-01] MEDS: CHOLECALCIFEROL (VITAMIN D3) 2,000 UNIT TABLET PO SCH (09:59)
[2020-12-01] MEDS: PANTOPRAZOLE SODIUM 40 MG/VIAL (PROTONIX) IVP SCH (09:59)
--- NOTE | 2020-12-01 10:00 | NUR ---
Patients bp is down to 74/44, increased pt's levophed to 0.6 mcg/kg/min fr 0.2 mcg. i will closely monitor the patient.
[2020-12-01] MEDS ORDERED: SODIUM BICARBONATE 8.4% JECT 50 MEQ/50 ML SYRINGE ONE (10:23)
[2020-12-01] MEDS ORDERED: SODIUM BICARBONATE 8.4% JECT 50 MEQ/50 ML SYRINGE IVP ONE (10:30)
[2020-12-01] MEDS ORDERED: SODIUM POLYSTYRENE SULFONATE 15 GM/60 ML UDBTL NG ONE (10:45)
[2020-12-01 11:38] LABS: CORRECTED WHITE BLOOD COUNT 20.5 K/uL (4.5-11.0)
[2020-12-01 11:39] LABS: BAND % (MANUAL) 12 % (0-6); BASOPHILS % (MANUAL) 0 % (0-2); EOSINOPHILS % (MANUAL) 0 % (0-7); LYMPHOCYTES % (MANUAL) 6 % (20-46); MONOCYTES % (MANUAL) 4 % (0-11)
--- NOTE | 2020-12-01 12:00 | NUR ---
Dr. Saleh came to the unit, pt's k = 7.0, he ordered 60 grms of kayexalate, also he said that he is unable to dialyze the patient due to low blood pressure, he also changed ivf to d52 w/ 3 amps of nahco3 bicarb at 150 ml/hr. i will give to the patient and monitor hime closely.
[2020-12-01] MEDS: SODIUM BICARBONATE 8.4% VIAL 150 MEQ in D5W 1,000 ML IV SCH ×2 (12:21→18:40)
[2020-12-01] MEDS: MICAFUNGIN SODIUM 50 MG in NS 100 ML IV SCH (13:00)
[2020-12-01] MEDS: DEXAMETHASONE SOD PHOSPHATE 10 MG/ML VIAL IVP SCH (15:30)
[2020-12-01] MEDS: NOREPINEPHRINE BITARTRATE 16 MG in NS 234 ML IV PRN (17:27)
[2020-12-01] MEDS: PROPOFOL DRIP 100 ML IV PRN (17:30)
--- NOTE | 2020-12-01 17:30 | NUR ---
checked patient bs = 54, given patient 1 amp of d50, bp going down increased levophed to max at 1 mcg/kg/min, also maintianed neosynephrine at 2 mcg/kg/min, i will closely monitor the patient.
--- NOTE | 2020-12-01 17:59 | NUR ---
Patient is not doing well, patient placed on maximum dose of levophed at 1 mcg/kg/min, also on neosynephrine at 2 mcg/kg/min, patient hr slowing down fr 90's to 7os, noritfied patient's family that patients condition is changing, spoke with daughter eamon, she said she will informed her brother, and Alem said they can come to see the patient, i will continue to monitor the patient closely.
--- NOTE | 2020-12-01 23:27 | NUR ---
Patient received unable to measureo BP. HR 70's. Patient's temp 87 degrees. . Patient's daughter at bedside. Family member requests patient to be DNR. DNR order obtained. Patient noted to be asystolic via playground monitor. No chest compressions performed. Patient assessed by ER . TOLore [id number].
--- NOTE | 2020-12-02 16:11 | NUR ---
Mortuary: [employer] phoned daughter Hilary @ [phone] who stated they have not made arrangements for patient. [employer] sent mortuary and bereavement resources to [email or web address]. SS will follow up.
== END 2020-12-01 20:56 | disposition expired | DRG 870 ==
LOC: SED 11:05 → SIC 14:19 → STU 11-18 11:50 → SIC 11-28 11:45
PROVIDERS: ADMIT General Practice; ATTEND General Practice
PROC: 5A1955Z Respiratory Ventilation, Greater than 96 Consecutive Hours (ICD-10-PCS; principal; 2020-11-11)
PROC: 0BH17EZ Insertion of Endotracheal Airway into Trachea, Via Natural or Artificial Opening (ICD-10-PCS; 2020-11-11)
PROC: XW13325 Transfusion of Convalescent Plasma (Nonautologous) into Peripheral Vein, Percutaneous Approach, New Technology Group 5 (ICD-10-PCS; 2020-11-12)
PROC: 5A09357 Assistance with Respiratory Ventilation, Less than 24 Consecutive Hours, Continuous Positive Airway Pressure (ICD-10-PCS; 2020-11-19)
PROC: 5A09457 Assistance with Respiratory Ventilation, 24-96 Consecutive Hours, Continuous Positive Airway Pressure (ICD-10-PCS; 2020-11-23)
PROC: 02HV33Z Insertion of Infusion Device into Superior Vena Cava, Percutaneous Approach (ICD-10-PCS; 2020-11-24)
PROC: B548ZZA Ultrasonography of Superior Vena Cava, Guidance (ICD-10-PCS; 2020-11-24)
PROC: 3E0336Z Introduction of Nutritional Substance into Peripheral Vein, Percutaneous Approach (ICD-10-PCS; 2020-11-26)
PROC: 5A09357 Assistance with Respiratory Ventilation, Less than 24 Consecutive Hours, Continuous Positive Airway Pressure (ICD-10-PCS; 2020-11-27)
PROC: 0BH17EZ Insertion of Endotracheal Airway into Trachea, Via Natural or Artificial Opening (ICD-10-PCS; 2020-11-28)
PROC: 5A1955Z Respiratory Ventilation, Greater than 96 Consecutive Hours (ICD-10-PCS; 2020-11-28)
DX: A41.9 Sepsis, unspecified organism (principal); U07.1 COVID-19; J12.82 Pneumonia due to coronavirus disease 2019; R65.21 Severe sepsis with septic shock; E43 Unspecified severe protein-calorie malnutrition; N17.0 Acute kidney failure with tubular necrosis; J80 Acute respiratory distress syndrome; J15.9 Unspecified bacterial pneumonia; E87.4 Mixed disorder of acid-base balance; J44.0 Chronic obstructive pulmonary disease with (acute) lower respiratory infection; Z99.11 Dependence on respirator [ventilator] status; Z68.1 Body mass index [BMI] 19.9 or less, adult; J44.1 Chronic obstructive pulmonary disease with (acute) exacerbation; E87.1 Hypo-osmolality and hyponatremia; K92.2 Gastrointestinal hemorrhage, unspecified; E11.22 Type 2 diabetes mellitus with diabetic chronic kidney disease; M19.90 Unspecified osteoarthritis, unspecified site; N18.2 Chronic kidney disease, stage 2 (mild); Z66 Do not resuscitate; N40.0 Benign prostatic hyperplasia without lower urinary tract symptoms; E80.6 Other disorders of bilirubin metabolism; R74.01 Elevation of levels of liver transaminase levels; D64.9 Anemia, unspecified; I12.9 Hypertensive chronic kidney disease with stage 1 through stage 4 chronic kidney disease, or unspecified chronic kidney disease; E78.5 Hyperlipidemia, unspecified; R13.10 Dysphagia, unspecified; Z79.899 Other long term (current) drug therapy; Z90.49 Acquired absence of other specified parts of digestive tract; Z98.42 Cataract extraction status, left eye; Z98.41 Cataract extraction status, right eye
CPT/HCPCS: 36415; 36430; 36600; 71045; 74018; 76700-TC; 80048; 80053; 80076; 82040-TC; 82248-TC; 82550-TC; 82803-TC; 82962; 83036; 83605; 83735-TC; 83880; 84100-TC; 84478-TC; 84484; 85007; 85018-TC; 85025; 85027; 85379; 85384-TC; 85610-TC; 85651-TC; 85730-TC; 86140; 86886; 86900; 86901; 87040-TC; 87070-TC; 87081; 87205-TC; 92610-GN; 93005; 93306; 94002; 94003; 94640; 94660; 94760; 96365; 96375; 97110-GP; 97116-GP; 97530-GP; 99291; C9113; J0456; J0692; J1100; J1650; J1815; J1940; J2060; J2248; J2270; J2370; J2543; J2704; J2765; J2930; J3480; J3490; J7030; J7040; J7042; J7050; J7060; J7612; J7613; J8540; P9017; Q0144